=== PATIENT | female | born 1965 | race Caucasian/White ===

== ENCOUNTER → 2022-11-10 08:36 | Outpatient (BNVA) | payer BC, SELFPAY | PROVIDERS: PCP Family Medicine; Visit Provider Student in an Organized Health Care Education/Training Program | DX: Z13.89 Encounter for screening for other disorder (principal) ==

== ENCOUNTER 2023-02-10 09:07 | Outpatient (AMB) | payer BC, SELFPAY ==
[2023-02-10 09:12] VITALS: BP 126/72; PULSE 100; TEMP 36.7; BMI 33.2
--- NOTE | 2023-02-10 09:12 | A.OFFVIS_ITS ---
Intake Vital Signs 02/10/23 09:12 Height 5 ft 8.5 in Weight 221 lb 5.506 oz BMI 33.2 BP 126/72 Blood Pressure Location Rt brachial Position Sitting Pulse 100 Pulse Source Pulse Oximeter Temp 98.1 F Temp Source Skin Intake Visit Reasons: RA Intake Note: * Pt seen today for RA follow up. Denies new or increased joint pain. * States she has more dismcomfort in summer, winter easier on the joints Hotel Reservation Agent Required: No Accompanied by: Self / Same As Patient Allergies adalimumab [From Humira] Adverse Reaction (Mild, Verified 02/10/23 09:16) Neuropathy Medication List - Last Reconciled 02/10/23 by Yoanna Hudson MD calcium carbonate-vitamin D3 600 mg-5 mcg (200 unit) 1 tab PO DAILY cetirizine (Zyrtec) 10 mg PO DAILY PRN cholecalciferol (vitamin D3) (Vitamin D3) 50 mcg PO DAILY famotidine 20 mg PO DAILY folic acid 2 mg PO DAILY magnesium 250 mg PO DAILY melatonin 10 mg PO BEDTIME PRN meloxicam 15 mg PO DAILY PRN methotrexate sodium 17.5 mg (7 x 2.5 mg) PO QWEEK sarilumab (Kevzara) 200 mg (1.14 mL) subcut Q2W HPI HPI Comments History of Present Illness Details 57-year-old female with seropositive RA returns for follow-up. Continues on methotrexate 17.5 mg once weekly and Kevzara every other week. Compliant with meds. States that she gets intermittent flares affecting different joints including her shoulder, knee, fingers. She gets 3-4 flares a week that last 1-2 days. Patient took ibuprofen 600 mg which caused stomach upset. She takes meloxicam 15 mg which rapidly control the flare. Initial history: This is a 57-year-old female with seropositive RA who presents with new patient. Her previous parish nurse left the practice. Patient states that her symptoms started back in summer with poly arthritis. She was diagnosed with rheumatoid arthritis and was started on methotrexate. She took methotrexate for approximately 6 months without much improvement. Humira was added and after 4 months she had burning peripheral neuropathy. She was evaluated by a neurologist, This was attributed to Humira and Humira was since discontinued. She states that her neuropathy improved after Humira was discontinued, but she states that she continues to have some neuropathy symptoms in her feet. She was off biologics for a few months and she was started on Kevzara back in March of 2022. Patient has been doing very well overall until last week when she developed migratory an additive joint pain and swelling affecting her right ankle, knee and hip. Today she only has pain in her right 3rd MCP. In flares patient takes Tylenol and takes 1 Aleve 400 mg a day. 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 and Reports joint swelling Physical Exam Vital Signs: Last Vital Signs Temp 98.1 F 02/10/23 09:12 Pulse 100 02/10/23 09:12 BP 126/72 02/10/23 09:12 BMI result Body Mass Index 33.2 Const General: cooperative, healthy appearing and comfortable Nutritional Appearance: obese Orientation/consciousness: patient oriented x3 Limitations: no limitations HEENT Head: Yes normocephalic and Yes atraumatic Mouth: moist mucous membranes Resp Effort & Inspection: normal respiratory effort and able to speak in complete sentences Auscultation: clear to auscultation bilaterally Cardio Rate: regular rate Rhythm: regular rhythm Heart sounds: S1 normal heart sound present and S2 normal heart sound present GI Inspection: No distended Palpation (GI): Soft to palpation and nontender Neuro General: patient oriented x3 Extrem Other: No active synovitis today Mildly tender right shoulder anteriorly. Results Reviewed Results Reviewed: Transthoracic echo 07/2022? EF 60-65%? MRI brain 12/2020? impression: minimal nonspecific white matter changes Labs 12/2020 ?anti histone antibody/NMO spectrum eval? all negative LEONID 1-80 homogeneous C3 61 (83-193) C4 15 (15-45) Labs 12/2020 Anti actin smooth muscle antibody/SSA/SSB/Thomas/CANE PUSHER/dsDNA/Scl 70/Ronna 1? all negative/normal? C3/C4 normal ACL IgG, IgA, IgG negative? B2GP IgG, IgM, IgA negative CCP > 250? RF 49.6 (<16) SPEP normal CRP 31.5 (<9) ESR 44 Hepatitis ABC negative? QuantiFERON negative X-rays 01/2020? Right hand x-ray.? Impression:? Questionable tiny erosion in the 1st metacarpal head? Left hand x-ray:? Normal? Bilateral shoulder x-rays:? Normal? Bilateral foot x-rays:? Degenerative changes in MTPs QuantiFERON negative Assessment & Plan Assessment & Plan (1) Rheumatoid arthritis: Comment: ++RF, +++CCP dx 01/2020 MTX started 2020 for 6 months without improvement, then Humira was added Humira DC in 12/2020 due to peripheral neuropathy. Neuropathy improved after Discontinuation Kevzara added 04/16 effective Code(s): M06.9 - Rheumatoid arthritis, unspecified Qualifiers: Rheumatoid arthritis location: multiple sites Rheumatoid factor presence: with rheumatoid factor Qualified Code(s): M05.79 - Rheumatoid arthritis with rheumatoid factor of multiple sites without organ or systems involvement Plan: This is a 57-year-old female with seropositive RA who returns for follow-up. D oing well overall. Gets minor intermittent flares that are controlled with meloxicam 15 mg. Discussed with patient the possibility of increasing methotrexate dose and changing it to subcutaneous. Patient prefers not to make any changes at this point. Patient's RA seems to be fairly well controlled. She is in low disease activity. Continue Kevzara every other week and methotrexate 7 tabs once weekly plus folic acid. Can use meloxicam 15 mg once daily as needed for flares Labs unremarkable. Labs before next visit in 4 months (2) terminal clerk methotrexate user: Code(s): Z79.631 - intermediate (current) use of antimetabolite agent Plan: Side effects of methotrexate were discussed with the patient in detail including oral ulcers, elevated LFTs, abdominal discomfort, and possible pancytopenia is. Will monitor patient for side effects with frequent lab work. Advised patient to take folic acid daily to prevent complications of methotrexate. Plan I spent 27 minutes reviewing patient's chart, evaluating patient, ordering diagnostic workup, counseling patient and documenting in the chart Orders: Orders Comprehensive Met. Panel 4 Months M06.9 - Rheumatoid arthritis, unspecified C Reactive Protein 4 Months M06.9 - Rheumatoid arthritis, unspecified Complete Blood Count Auto Diff 4 Months M06.9 - Rheumatoid arthritis, unspecified Erythrocyte Sedimentation Rate 4 Months M06.9 - Rheumatoid arthritis, unspecified Medications: New meloxicam 15 mg PO DAILY PRN 30 tabs 2RF joint pain folic acid 2 mg (2 x 1 mg) PO DAILY 180 tabs 1RF Coding Level of Care Code Est Pt Level 4 (27768) Diagnoses Rheumatoid arthritis M05.79 Rheumatoid arthritis location: multiple sites Rheumatoid factor presence: with rheumatoid factor intermediate methotrexate user Z79.631
== END 2023-02-10 09:58 | disposition home or self-care (01) ==
PROVIDERS: PCP Family Medicine; Visit Provider Student in an Organized Health Care Education/Training Program
DX: M05.79 Rheumatoid arthritis with rheumatoid factor of multiple sites without organ or systems involvement (principal); Z79.631 Long term (current) use of antimetabolite agent
CPT/HCPCS: 99214

== ENCOUNTER → 2023-02-10 09:07 | Outpatient (BNVA) | payer BC, SELFPAY | PROVIDERS: PCP Family Medicine; Visit Provider Student in an Organized Health Care Education/Training Program ==

== ENCOUNTER 2023-06-09 07:41 | Outpatient (AMB) | payer BC, SELFPAY ==
[2023-06-09 07:43] VITALS: BP 110/80; PULSE 98; TEMP 36.1; O2SAT 97; BMI 33.1
--- NOTE | 2023-06-09 07:43 | MHC.OFFVIS ---
Intake Vital Signs 06/09/23 07:43 Height 5 ft 8.5 in Weight 221 lb 1.978 oz BMI 33.1 BP 110/80 Blood Pressure Location Rt brachial Position Sitting Pulse 98 Pulse Source Pulse Oximeter Temp 97 F Temp Source Skin Pulse Oximetry (%) 97 Oxygen Delivery Method Room Air Intake Visit Reasons: RA Intake Note: Pt last seen 02/10/23, presents today for follow up and test results. Kevzara, MTX and meloxicam prn Reports ongoing joint pains. Cement Loader Required: No Accompanied by: Self / Same As Patient Allergies adalimumab [From Humira] Adverse Reaction (Mild, Verified 06/09/23 07:43) Neuropathy Medication List - Last Reconciled 06/09/23 by Yoanna Hudson MD calcium carbonate-vitamin D3 600 mg-5 mcg (200 unit) 1 tab PO DAILY cetirizine (Zyrtec) 10 mg PO DAILY PRN famotidine 20 mg PO DAILY folic acid 2 mg (2 x 1 mg) PO DAILY Kevzara (sarilumab) 200 mg (1.14 mL) subcut Q2W NS magnesium 250 mg PO DAILY melatonin 10 mg PO BEDTIME PRN meloxicam 15 mg PO DAILY PRN methotrexate sodium 17.5 mg (7 x 2.5 mg) PO QWEEK HPI HPI Comments History of Present Illness Details 57-year-old female with seropositive RA returns for follow-up. Continues on methotrexate 17.5 mg once weekly and Kevzara every other week. Compliant with meds. States that she gets intermittent flares affecting different joints including her hands, neck. She states that the Kevzara works very well for 7-10 days then she starts to have multiple flare-ups. She has to take meloxicam daily. She denies any recent infections. For the last 3-4 months 2 people had COVID infection at home and she did not catch the infection. Today patient feels great as she just did the Kevzara injection 2 days ago Initial history: This is a 57-year-old female with seropositive RA who presents with new patient. Her previous administrative receptionist left the practice. Patient states that her symptoms started back in summer with poly arthritis. She was diagnosed with rheumatoid arthritis and was started on methotrexate. She took methotrexate for approximately 6 months without much improvement. Humira was added and after 4 months she had burning peripheral neuropathy. She was evaluated by a neurologist, This was attributed to Humira and Humira was since discontinued. She states that her neuropathy improved after Humira was discontinued, but she states that she continues to have some neuropathy symptoms in her feet. She was off biologics for a few months and she was started on Kevzara back in March of 2022. Patient has been doing very well overall until last week when she developed migratory an additive joint pain and swelling affecting her right ankle, knee and hip. Today she only has pain in her right 3rd MCP. In flares patient takes Tylenol and takes 1 Aleve 400 mg a day. [facility] Medical History Female infertility Presbyopia Tendinitis Allergic rhinitis due to pollen Congenital anomaly of skin Mammogram abnormal Urticaria Rheumatoid arthritis Surgical History H/O: Hx of colonoscopy Hx of tonsillectomy Family History Mother Bladder cancer Leukemia Malignant tumor of breast Father Gout Myocardial infarction FH: prostate cancer Brother Hypertension Sister Hypertension Social History Household Members: Spouse and Children Alcohol intake: current Alcohol intake frequency: holidays/special occasions only Patient Tobacco Use Status: Never used Tobacco Current occupational status: employed 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 [employer] Reports neck pain Musc Reports arthralgias, Reports joint swelling, Reports neck pain and Reports stiffness Physical Exam Vital Signs: Last Vital Signs Temp 97 F 06/09/23 07:43 Pulse 98 06/09/23 07:43 BP 110/80 06/09/23 07:43 Pulse Ox 97 06/09/23 07:43 Oxygen Delivery Method Room Air 06/09/23 07:43 BMI result Body Mass Index 33.1 Const General: cooperative, healthy appearing and comfortable Nutritional Appearance: obese Orientation/consciousness: patient oriented x3 Limitations: no limitations HEENT Head: Yes normocephalic and Yes atraumatic Mouth: moist mucous membranes Resp Effort & Inspection: normal respiratory effort and able to speak in complete sentences Auscultation: clear to auscultation bilaterally Cardio Rate: regular rate Rhythm: regular rhythm Heart sounds: S1 normal heart sound present and S2 normal heart sound present GI Inspection: No distended Palpation (GI): Soft to palpation and nontender Neuro General: patient oriented x3 Extrem Other: No active synovitis today. No swollen joints. A small firm node on the dorsal aspect on the right index finger, minimally tender. Heberden's node versus rheumatoid nodule Results Reviewed Results Reviewed: Transthoracic echo 07/2022? EF 60-65%? MRI brain 12/2020? impression: minimal nonspecific white matter changes Labs 12/2020 ?anti histone antibody/NMO spectrum eval? all negative LEONID 1-80 homogeneous C3 61 (83-193) C4 15 (15-45) Labs 12/2020 Anti actin smooth muscle antibody/SSA/SSB/Thomas/VECTOR CONTROL SPECIALIST/dsDNA/Scl 70/Ronna 1? all negative/normal? C3/C4 normal ACL IgG, IgA, IgG negative? B2GP IgG, IgM, IgA negative CCP > 250? RF 49.6 (<16) SPEP normal CRP 31.5 (<9) ESR 44 Hepatitis ABC negative? QuantiFERON negative X-rays 01/2020? Right hand x-ray.? Impression:? Questionable tiny erosion in the 1st metacarpal head? Left hand x-ray:? Normal? Bilateral shoulder x-rays:? Normal? Bilateral foot x-rays:? Degenerative changes in MTPs QuantiFERON negative Assessment & Plan Assessment & Plan (1) Rheumatoid arthritis: Comment: ++RF, +++CCP dx 01/2020 MTX started 2020 for 6 months without improvement, then Humira was added Humira DC in 12/2020 due to peripheral neuropathy. Neuropathy improved after Discontinuation Kevzara added 04/16 effective Code(s): M06.9 - Rheumatoid arthritis, unspecified Qualifiers: Rheumatoid arthritis location: multiple sites Rheumatoid factor presence: with rheumatoid factor Qualified Code(s): M05.79 - Rheumatoid arthritis with rheumatoid factor of multiple sites without organ or systems involvement Plan: This is a 57-year-old female with seropositive RA who returns for follow-up. On methotrexate 17.5 mg weekly and Kevzara 200 mg every other week. Continues to have RA flare-ups. She has to use meloxicam 15 mg daily. Discussed long-term side effects of NSAIDs Will need to advance DMARDs. Discussed with patient. Will switch methotrexate to subcu and increase to 25 mg weekly Labs showed neutropenia at 0.83. This was just before the Kevzara injection. There is no history of infections or fevers over the last 3-4 months despite 2 people getting COVID infections at home. Hold Kevzara for now. Repeat blood work next Wednesday. If neutrophil count is above 1.0 will resume Kevzara, and repeat blood work before next visit. If neutrophil count remains below 1.0, will switch to Orencia. Continue folic acid daily Labs before next visit in 3 months (2) assisted methotrexate user: Code(s): Z79.631 - terminal supervisor (current) use of antimetabolite agent Plan: Monitor safety labs Plan I spent 35 minutes reviewing patient's chart, evaluating patient, ordering diagnostic workup, counseling patient and documenting in the chart Orders: Orders Complete Blood Count Auto Diff 06/14/23 Z79.631 - assisted (current) use of antimetabolite agent Complete Blood Count Auto Diff 3 Months Z79.631 - assisted (current) use of antimetabolite agent Comprehensive Met. Panel 3 Months Z79.631 - assisted (current) use of antimetabolite agent C Reactive Protein 3 Months Z79.631 - assisted (current) use of antimetabolite agent Erythrocyte Sedimentation Rate 3 Months Z79.631 - terminal supervisor (current) use of antimetabolite agent Medications: New methotrexate sodium (PF) 25 mg subcut QWEEK 4 mL 2RF Refilled meloxicam 15 mg PO DAILY PRN 30 tabs 2RF joint pain Discontinued methotrexate sodium Discontinued Reason: Doctor's Order 17.5 mg (7 x 2.5 mg) PO QWEEK 84 tabs 0RF Coding Level of Care Code Est Pt Level 4 (96990) Diagnoses Rheumatoid arthritis involving multiple sites with positive rheumatoid factor M05.79 Rheumatoid arthritis location: multiple sites Rheumatoid factor presence: with rheumatoid factor terminal supervisor methotrexate user Z79.631
== END 2023-06-09 08:24 | disposition home or self-care (01) ==
PROVIDERS: PCP Family Medicine; Visit Provider Student in an Organized Health Care Education/Training Program
DX: M05.79 Rheumatoid arthritis with rheumatoid factor of multiple sites without organ or systems involvement (principal); Z79.631 Long term (current) use of antimetabolite agent
CPT/HCPCS: 99214

== ENCOUNTER → 2023-06-09 07:41 | Outpatient (BNVA) | payer BC, SELFPAY | PROVIDERS: PCP Family Medicine; Visit Provider Student in an Organized Health Care Education/Training Program ==

== ENCOUNTER 2023-06-14 07:52 | Outpatient (REF) | payer BC, SELFPAY ==
[2023-06-14 10:51] LABS: Basophils Absolute Auto 0.1 X10*3/uL (0.0-0.2); Basophils Percent Auto 1.7 % (0-2); Eosinophils Absolute Auto 0.2 X10*3/uL (0.0-0.4); Hematocrit 39.6 % (37.0-47.0); Hemoglobin 13.7 g/dl (12.0-16.0); Imm Gran Abs Auto 0.01 X10*3/uL (0.00-0.03); Imm Gran Pct Auto 0.3 % (0.0-0.4); Lymphocytes Absolute Auto 0.9 X10*3/uL (1.2-4.9); Lymphocytes Percent Auto 30.8 % (20-40); MANUAL DIFF FLAG SCAN; Mean Corpuscular HGB Conc 34.6 g/dl (31.0-35.0); Mean Corpuscular Hemoglobin 33.3 pg (27.0-33.0); Mean Corpuscular Volume 96.4 fL (80.0-98.0); Monocytes Absolute Auto 0.7 X10*3/uL (0.1-1.2); Monocytes Percent Auto 22.4 % (2-11); Neutrophils Absolute Auto 1.2 x10*3/uL (2.0-8.3); Neutrophils Percent Auto 39.8 % (45-73); Platelet Count 204 X10*3/uL (160-400); Red Blood Count 4.11 X10*6/uL (4.20-5.50); Red Cell Distribution Width 13.2 % (11.0-16.0); SCAN SMEAR FLAG 1
[2023-06-14 11:16] LABS: SLIDE REVIEW VERIFIED
== END 2023-06-14 07:53 | disposition home or self-care (01) ==
LOC: HO.10HDL 07:52
PROVIDERS: Visit Provider Student in an Organized Health Care Education/Training Program
DX: Z51.81 Encounter for therapeutic drug level monitoring (principal); Z79.631 Long term (current) use of antimetabolite agent
CPT/HCPCS: 36415; 85025

== ENCOUNTER 2023-07-22 07:43 | Outpatient (AMB) | payer BC, SELFPAY ==
--- NOTE | 2023-07-22 07:46 | MHC.OFFVIS ---
Intake Vital Signs 07/22/23 07:51 Height 5 ft 8.5 in Weight 223 lb 1.725 oz BMI 33.4 BP 140/80 H Blood Pressure Location Rt brachial Position Sitting Pulse 89 Pulse Source Pulse Oximeter Temp 97 F Temp Source Skin Pulse Oximetry (%) 98 Oxygen Delivery Method Room Air Intake Visit Reasons: Flare up Intake Note: Patient presents today for RA flare. Currently taking Prednisone 20 mg QD. c/o right knee pain, right elbow pain, tammy hand pain Bronc Breaker Required: No Accompanied by: Self / Same As Patient Allergies adalimumab [From Humira] Adverse Reaction (Mild, Verified 07/22/23 07:52) Neuropathy Medication List - Last Reconciled 07/22/23 by Yoanna Hudson MD calcium carbonate-vitamin D3 600 mg-5 mcg (200 unit) 1 tab PO DAILY cetirizine (Zyrtec) 10 mg PO DAILY PRN famotidine 20 mg PO DAILY folic acid 2 mg (2 x 1 mg) PO DAILY insulin syringe-needle U-100 (Advocate Syringes) weekly with methotrexate magnesium 250 mg PO DAILY melatonin 10 mg PO BEDTIME PRN meloxicam 15 mg PO DAILY PRN methotrexate sodium (PF) 25 mg subcut QWEEK methylprednisolone (Medrol) Take 3 tabs daily for 5 days then 2 tabs daily for 1 week then 1 tab daily for 1 week then 1 tab once daily as needed for joint HPI HPI Comments History of Present Illness Details 58-year-old female with seropositive RA returns for follow-up. She starting using methotrexate subcutaneously 25 mg weekly 3 weeks ago. Has not had any difficulties with injection. On Kevzara every other week. She would like to switch D Kevzara 2 syringes. She believes that the pens mouth function and some of the medicine does not go in. She states that a week before Thanksgiving her cat bit her left hand and she developed an infection. She took Augmentin for about a week and 5 days in the infection resolved but since then she has been having a flare-up affecting multiple joints it alternates and migrates in different joints including her feet, knees, hands, yesterday her right elbow started flaring up. She has been taking prednisone 10-20 mg daily and does not believe it helps Initial history: This is a 57-year-old female with seropositive RA who presents with new patient. Her previous precinct police sergeant left the practice. Patient states that her symptoms started back in summer with poly arthritis. She was diagnosed with rheumatoid arthritis and was started on methotrexate. She took methotrexate for approximately 6 months without much improvement. Humira was added and after 4 months she had burning peripheral neuropathy. She was evaluated by a neurologist, This was attributed to Humira and Humira was since discontinued. She states that her neuropathy improved after Humira was discontinued, but she states that she continues to have some neuropathy symptoms in her feet. She was off biologics for a few months and she was started on Kevzara back in March of 2022. Patient has been doing very well overall until last week when she developed migratory an additive joint pain and swelling affecting her right ankle, knee and hip. Today she only has pain in her right 3rd MCP. In flares patient takes Tylenol and takes 1 Aleve 400 mg a day. [facility] Medical History Female infertility Presbyopia Tendinitis Allergic rhinitis due to pollen Congenital anomaly of skin Mammogram abnormal Urticaria Rheumatoid arthritis Surgical History H/O: Hx of colonoscopy Hx of tonsillectomy Family History Mother Bladder cancer Leukemia Malignant tumor of breast Father Gout Myocardial infarction FH: prostate cancer Brother Hypertension Sister Hypertension Social History Household Members: Spouse and Children Alcohol intake: current Alcohol intake frequency: holidays/special occasions only Patient Tobacco Use Status: Never used Tobacco Current occupational status: employed 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[place] Reports arthralgias, Reports joint swelling and Reports stiffness Physical Exam Vital Signs: Last Vital Signs Temp 97 F 07/22/23 07:51 Pulse 89 07/22/23 07:51 BP 140/80 H 07/22/23 07:51 Pulse Ox 98 07/22/23 07:51 Oxygen Delivery Method Room Air 07/22/23 07:51 BMI result Body Mass Index 33.4 Const General: cooperative, healthy appearing and comfortable Nutritional Appearance: obese Orientation/consciousness: patient oriented x3 Limitations: no limitations HEENT Head: Yes normocephalic and Yes atraumatic Mouth: moist mucous membranes Resp Effort & Inspection: normal respiratory effort and able to speak in complete sentences Cardio Rate: regular rate Rhythm: regular rhythm GI Inspection: No distended Palpation (GI): Soft to palpation and nontender Neuro General: patient oriented x3 Extrem Other: Right elbow tenderness warmth and pain with any range of motion Right 3rd finger flexor tendon tenderness Left 2nd MCP tenderness Left wrist pain with full flexion Results Reviewed Results Reviewed: Transthoracic echo 07/2022? EF 60-65%? MRI brain 12/2020? impression: minimal nonspecific white matter changes Labs 12/2020 ?anti histone antibody/NMO spectrum eval? all negative LEONID 1-80 homogeneous C3 61 (83-193) C4 15 (15-45) Labs 12/2020 Anti actin smooth muscle antibody/SSA/SSB/Thomas/BOILERHOUSE MECHANIC/dsDNA/Scl 70/Ronna 1? all negative/normal? C3/C4 normal ACL IgG, IgA, IgG negative? B2GP IgG, IgM, IgA negative CCP > 250? RF 49.6 (<16) SPEP normal CRP 31.5 (<9) ESR 44 Hepatitis ABC negative? QuantiFERON negative X-rays 01/2020? Right hand x-ray.? Impression:? Questionable tiny erosion in the 1st metacarpal head? Left hand x-ray:? Normal? Bilateral shoulder x-rays:? Normal? Bilateral foot x-rays:? Degenerative changes in MTPs QuantiFERON negative Assessment & Plan Assessment & Plan (1) Rheumatoid arthritis: Comment: ++RF, +++CCP dx 01/2020 MTX started 2020 for 6 months without improvement, then Humira was added Humira DC in 12/2020 due to peripheral neuropathy. Neuropathy improved after Discontinuation Kevzara added 04/16 effective Code(s): M06.9 - Rheumatoid arthritis, unspecified Qualifiers: Rheumatoid arthritis location: multiple sites Rheumatoid factor presence: with rheumatoid factor Qualified Code(s): M05.79 - Rheumatoid arthritis with rheumatoid factor of multiple sites without organ or systems involvement Plan: This is a 58-year-old female with seropositive RA who returns for follow-up. She is on methotrexate 25 mg subcutaneously weekly, Kevzara every other week, and folic acid. A week before Thanksgiving patient had a cat bite that was treated with antibiotic as since then she has been having a flare-up affecting different joints. She has been taking prednisone 10-20 mg a day and does not believe it helps. On exam today patient multiple swollen and tender joints. Will need to advance and switch DMARDs. Will start prior authorization for subcutaneous Actemra, 162 mg once weekly Continue with methotrexate 25 mg subcutaneously weekly. Continue folic acid Will switch prednisone to Medrol taper provided Labs before next visit in 10 weeks (2) long term acute care registered nurse methotrexate user: Code(s): Z79.631 - prison (current) use of antimetabolite agent Plan: Monitor safety labs Plan I spent 25 minutes reviewing patient's chart, evaluating patient, ordering diagnostic workup, counseling patient and documenting in the chart Medications: New methylprednisolone (Medrol) Take 3 tabs daily for 5 days then 2 tabs daily for 1 week then 1 tab daily for 1 week then 1 tab once daily as needed for joint 50 tabs 1RF Discontinued prednisone Discontinued Reason: Doctor's Order Take 1-2 tablets once daily as needed for flare-ups 30 tabs 0RF Coding Level of Care Code Est Pt Level 4 (92323) Diagnoses Rheumatoid arthritis involving multiple sites with positive rheumatoid factor M05.79 Rheumatoid arthritis location: multiple sites Rheumatoid factor presence: with rheumatoid factor prison methotrexate user Z79.631
[2023-07-22 07:51] VITALS: BP 140/80; PULSE 89; TEMP 36.1; O2SAT 98; BMI 33.4
== END 2023-07-22 08:07 | disposition home or self-care (01) ==
PROVIDERS: PCP Family Medicine; Visit Provider Student in an Organized Health Care Education/Training Program
DX: M05.79 Rheumatoid arthritis with rheumatoid factor of multiple sites without organ or systems involvement (principal); Z79.631 Long term (current) use of antimetabolite agent
CPT/HCPCS: 99214

== ENCOUNTER → 2023-07-22 07:43 | Outpatient (BNVA) | payer BC, SELFPAY | PROVIDERS: PCP Family Medicine; Visit Provider Student in an Organized Health Care Education/Training Program ==

== ENCOUNTER 2023-09-16 10:22 | Outpatient (REF) | payer BC, SELFPAY ==
[2023-09-16 13:08] LABS: MANUAL DIFF FLAG NO
[2023-09-16 13:23] LABS: Basophils Absolute Auto 0.1 X10*3/uL (0.0-0.2); Basophils Percent Auto 1.7 % (0-2); Eosinophils Absolute Auto 0.1 X10*3/uL (0.0-0.4); Eosinophils Percent Auto 3.9 % (0-4); Hematocrit 38.8 % (37.0-47.0); Hemoglobin 13.6 g/dl (12.0-16.0); Imm Gran Abs Auto 0.01 X10*3/uL (0.00-0.03); Imm Gran Pct Auto 0.3 % (0.0-0.4); Lymphocytes Absolute Auto 1.5 X10*3/uL (1.2-4.9); Lymphocytes Percent Auto 41.3 % (20-40); Mean Corpuscular HGB Conc 35.1 g/dl (31.0-35.0); Mean Corpuscular Hemoglobin 33.9 pg (27.0-33.0); Mean Corpuscular Volume 96.8 fL (80.0-98.0); Mean Platelet Volume 11.2 fL (9.4-12.3); Monocytes Absolute Auto 0.3 X10*3/uL (0.1-1.2); Monocytes Percent Auto 9.4 % (2-11); Neutrophils Absolute Auto 1.6 x10*3/uL (2.0-8.3); Neutrophils Percent Auto 43.4 % (45-73); Platelet Count 199 X10*3/uL (160-400); Red Blood Count 4.01 X10*6/uL (4.20-5.50); Red Cell Distribution Width 13.2 % (11.0-16.0); White Blood Count 3.6 X10*3/uL (4.8-10.8)
[2023-09-16 13:43] LABS: Alanine Aminotransferase 37 U/L (0-31); Albumin Level 3.9 g/dL (3.5-5.0); Alkaline Phosphatase 60 U/L (39-117); Anion Gap 11 (12-20); Aspartate Amino Transferase 23 U/L (5-31); Bilirubin Total 0.5 mg/dL (0.0-1.0); Blood Urea Nitrogen 18 mg/dL (9-16); C Reactive Protein < 0.04 mg/dL (< or = 0.50); Calcium 8.5 mg/dL (8.4-10.2); Carbon Dioxide 24 mmol/L (22-29); Chloride 109 mmol/L (96-108); Estimated Glomerular Filt Rate > 60; Glucose Random 103 mg/dL (60-115); Potassium 4.2 mmol/L (3.3-5.1); Sodium 140 mmol/L (135-145); Total Protein 6.3 g/dL (6.5-8.0)
[2023-09-16 14:16] LABS: Erythrocyte Sedimentation Rate 1 MM/HR (0-20)
== END 2023-09-16 10:23 | disposition home or self-care (01) ==
LOC: HO.10HDL 10:22
PROVIDERS: Visit Provider Student in an Organized Health Care Education/Training Program
DX: M06.9 Rheumatoid arthritis, unspecified (principal); Z79.631 Long term (current) use of antimetabolite agent
CPT/HCPCS: 36415; 80053; 85025; 85652; 86140

== ENCOUNTER 2023-09-21 07:32 | Outpatient (AMB) | payer BC, SELFPAY ==
--- NOTE | 2023-09-21 07:34 | A.OFFVIS_ITS ---
Intake Vital Signs 09/21/23 07:36 Height 5 ft 8.43 in Weight 222 lb 10.67 oz BMI 33.4 BP 126/74 Blood Pressure Location Rt brachial Position Sitting Pulse 73 Pulse Source Pulse Oximeter Temp 97.7 F Temp Source Skin Pulse Oximetry (%) 97 Oxygen Delivery Method Room Air Intake Visit Reasons: RA Intake Note: Patient last seen 07/22/23 presents today for follow up and test results. Reports feeling better since last visit. Continues with MTX and Actemra, may need refills. 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: No Accompanied by: Self / Same As Patient Allergies adalimumab [From Humira] Adverse Reaction (Mild, Verified 09/21/23 07:38) Neuropathy Medication List - Last Reconciled 09/21/23 by Yoanna Hudson MD Actemra (tocilizumab) 162 mg (0.9 mL) subcut QWEEK NS calcium carbonate-vitamin D3 600 mg-5 mcg (200 unit) 1 tab PO DAILY cetirizine (Zyrtec) 10 mg PO DAILY PRN famotidine 20 mg PO DAILY folic acid 2 mg (2 x 1 mg) PO DAILY insulin syringe-needle U-100 (Advocate Syringes) weekly with methotrexate magnesium 250 mg PO DAILY melatonin 10 mg PO BEDTIME PRN meloxicam 15 mg PO DAILY PRN methotrexate sodium (PF) 25 mg subcut QWEEK HPI HPI Comments History of Present Illness Details 58-year-old female with seropositive RA returns for follow-up. She switched from Kevzara every other week to Actemra weekly last visit about 2 months ago. Also on methotrexate 25 mg subcutaneously weekly. Doing much better overall. She has minimal alternating small joint involvement but overall much better. Has not used Medrol in a long time. No recent illnesses. No alcohol use. Initial history: This is a 57-year-old female with seropositive RA who presents with new patient. 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 Patient states that her symptoms started back in summer with poly arthritis. She was diagnosed with rheumatoid arthritis and was started on methotrexate. She took methotrexate for approximately 6 months without much improvement. Humira was added and after 4 months she had burning peripheral neuropathy. She was evaluated by a neurologist, This was attributed to Humira and Humira was since discontinued. She states that her neuropathy improved after Humira was discontinued, but she states that she continues to have some neuropathy symptoms in her feet. She was off biologics for a few months and she was started on Kevzara back in March of 2022. Patient has been doing very well overall until last week when she developed migratory an additive joint pain and swelling affecting her right ankle, knee and hip. Today she only has pain in her right 3rd MCP. In flares patient takes Tylenol and takes 1 Aleve 400 mg a day. [facility] Medical History Female infertility Presbyopia Tendinitis Allergic rhinitis due to pollen Congenital anomaly of skin Mammogram abnormal Urticaria Rheumatoid arthritis Surgical History H/O: Hx of colonoscopy Hx of tonsillectomy Family History Mother Bladder cancer Leukemia Malignant tumor of breast Father Gout Myocardial infarction FH: prostate cancer Brother Hypertension Sister Hypertension Social History Household Members: Spouse and Children Alcohol intake: current Alcohol intake frequency: holidays/special occasions only Patient Tobacco Use Status: Never used Tobacco Current occupational status: employed 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[employer] [place] Reports arthralgias and Reports joint swelling Physical Exam Vital Signs: Last Vital Signs Temp 97.7 F 09/21/23 07:36 Pulse 73 09/21/23 07:36 BP 126/74 09/21/23 07:36 Pulse Ox 97 09/21/23 07:36 Oxygen Delivery Method Room Air 09/21/23 07:36 BMI result Body Mass Index 33.4 Const General: cooperative, healthy appearing and comfortable Nutritional Appearance: obese Orientation/consciousness: patient oriented x3 Limitations: no limitations HEENT Head: Yes normocephalic and Yes atraumatic Mouth: moist mucous membranes Resp Effort & Inspection: normal respiratory effort and able to speak in complete sentences Cardio Rate: regular rate Rhythm: regular rhythm GI Inspection: No distended Palpation (GI): Soft to palpation and nontender Neuro General: patient oriented x3 Extrem Other: No elbow pain with flexion and extension bilaterally Normal range of motion of both shoulders without pain Mild right wrist pain with full flexion Mild right 2nd MCP swelling without tenderness Mild left 2nd MCP swelling and tenderness Bilateral knee crepitus but no pain with flexion and extension Results Reviewed Results Reviewed: Transthoracic echo 07/2022? EF 60-65%? MRI brain 12/2020? impression: minimal nonspecific white matter changes Labs 12/2020 ?anti histone antibody/NMO spectrum eval? all negative LEONID 1-80 homogeneous C3 61 (83-193) C4 15 (15-45) Labs 12/2020 Anti actin smooth muscle antibody/SSA/SSB/Thomas/CRAFT SUPERINTENDENT/dsDNA/Scl 70/Ronna 1? all negative/normal? C3/C4 normal ACL IgG, IgA, IgG negative? B2GP IgG, IgM, IgA negative CCP > 250? RF 49.6 (<16) SPEP normal CRP 31.5 (<9) ESR 44 Hepatitis ABC negative? QuantiFERON negative X-rays 01/2020? Right hand x-ray.? Impression:? Questionable tiny erosion in the 1st metacarpal head? Left hand x-ray:? Normal? Bilateral shoulder x-rays:? Normal? Bilateral foot x-rays:? Degenerative changes in MTPs QuantiFERON negative Assessment & Plan Assessment & Plan (1) Rheumatoid arthritis: Comment: ++RF, +++CCP dx 01/2020 MTX started 2020 for 6 months without improvement, then Humira was added Humira DC in 12/2020 due to peripheral neuropathy. Neuropathy improved after Discontinuation Kevzara added 04/16-07/2023 DC due to secondary nonresponse Actemra weekly 07/2023 effective Code(s): M06.9 - Rheumatoid arthritis, unspecified Qualifiers: Rheumatoid arthritis location: multiple sites Rheumatoid factor presence: with rheumatoid factor Qualified Code(s): M05.79 - Rheumatoid arthritis with rheumatoid factor of multiple sites without organ or systems involvement Plan: This is a 58-year-old female with seropositive RA who returns for follow-up. She is on methotrexate 25 mg subcutaneously weekly, Actemra weekly and folic acid. Doing much better overall since Actemra was started. 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) use of antimetabolite agent Medications: Changed From methotrexate sodium (PF) 25 mg subcut QWEEK 8 mL 2RF To methotrexate sodium (PF) 20 mg (0.8 mL) subcut QWEEK 8 mL 2RF Refilled insulin syringe-needle U-100 ([facility]ocate Syringes) weekly with methotrexate 10 ea 1RF M06.9 - Rheumatoid arthritis, unspecified, Z79.631 - residential (current) use of antimetabolite agent Coding Level of Care Code Est Pt Level 4 (34036) Diagnoses Rheumatoid arthritis involving multiple sites with positive rheumatoid factor M05.79 Rheumatoid arthritis location: multiple sites Rheumatoid factor presence: with rheumatoid factor residential methotrexate user Z79.631
[2023-09-21 07:36] VITALS: BP 126/74; PULSE 73; TEMP 36.5; O2SAT 97; BMI 33.4
== END 2023-09-21 07:57 | disposition home or self-care (01) ==
PROVIDERS: PCP Family Medicine; Visit Provider Student in an Organized Health Care Education/Training Program
DX: M05.79 Rheumatoid arthritis with rheumatoid factor of multiple sites without organ or systems involvement (principal); Z79.631 Long term (current) use of antimetabolite agent
CPT/HCPCS: 99214

== ENCOUNTER → 2023-09-21 07:32 | Outpatient (BNVA) | payer BC, SELFPAY | PROVIDERS: PCP Family Medicine; Visit Provider Student in an Organized Health Care Education/Training Program ==

== ENCOUNTER 2023-12-09 12:08 | Outpatient (REF) | payer BC, SELFPAY ==
[2023-12-09 12:48] LABS: MANUAL DIFF FLAG NO
[2023-12-09 12:51] LABS: Basophils Absolute Auto 0.1 X10*3/uL (0.0-0.2); Basophils Percent Auto 1.3 % (0-2); Eosinophils Absolute Auto 0.1 X10*3/uL (0.0-0.4); Eosinophils Percent Auto 3.4 % (0-4); Hematocrit 37.2 % (37.0-47.0); Hemoglobin 13.1 g/dl (12.0-16.0); Lymphocytes Absolute Auto 1.4 X10*3/uL (1.2-4.9); Lymphocytes Percent Auto 35.6 % (20-40); Mean Corpuscular HGB Conc 35.2 g/dl (31.0-35.0); Mean Corpuscular Hemoglobin 33.9 pg (27.0-33.0); Mean Corpuscular Volume 96.1 fL (80.0-98.0); Monocytes Absolute Auto 0.4 X10*3/uL (0.1-1.2); Neutrophils Absolute Auto 1.9 x10*3/uL (2.0-8.3); Neutrophils Percent Auto 49.7 % (45-73); Platelet Count 195 X10*3/uL (160-400); Red Blood Count 3.87 X10*6/uL (4.20-5.50); Red Cell Distribution Width 13.4 % (11.0-16.0); White Blood Count 3.8 X10*3/uL (4.8-10.8)
[2023-12-09 13:38] LABS: Erythrocyte Sedimentation Rate 2 MM/HR (0-20)
[2023-12-09 13:48] LABS: Alanine Aminotransferase 34 U/L (0-31); Albumin Level 3.9 g/dL (3.5-5.0); Alkaline Phosphatase 48 U/L (39-117); Anion Gap 11 (12-20); Aspartate Amino Transferase 24 U/L (5-31); Bilirubin Total 0.4 mg/dL (0.0-1.0); Blood Urea Nitrogen 18 mg/dL (9-16); C Reactive Protein < 0.04 mg/dL (< or = 0.50); Calcium 8.8 mg/dL (8.4-10.2); Carbon Dioxide 27 mmol/L (22-29); Chloride 107 mmol/L (96-108); Estimated Glomerular Filt Rate > 60; Glucose Random 92 mg/dL (60-115); Sodium 141 mmol/L (135-145); Total Protein 6.3 g/dL (6.5-8.0)
== END 2023-12-09 12:09 | disposition home or self-care (01) ==
LOC: HO.10HDL 12:08
PROVIDERS: Visit Provider Student in an Organized Health Care Education/Training Program
DX: M06.9 Rheumatoid arthritis, unspecified (principal); Z79.631 Long term (current) use of antimetabolite agent
CPT/HCPCS: 36415; 80053; 85025; 85652; 86140

== ENCOUNTER 2023-12-14 07:36 | Outpatient (AMB) | payer BC, SELFPAY ==
--- NOTE | 2023-12-14 07:40 | A.OFFVIS_ITS ---
Vital Signs 12/14/23 07:41 Height 5 ft 8.4 in Weight 222 lb 0.088 oz BMI 33.4 BP 138/74 Blood Pressure Location Rt brachial Position Sitting Pulse 90 Pulse Source Pulse Oximeter Pulse Oximetry (%) 97 Oxygen Delivery Method Room Air Intake Visit Reasons: RA/CM Intake Note: Patient last seen 09/21/23 presents today for follow up and test results. Reports increased pain everywhere [employer] Required: No Accompanied by: Self / Same As Patient Allergies adalimumab [From Humira] Adverse Reaction (Mild, Verified 12/14/23 07:50) Neuropathy Medication List - Last Reconciled 12/14/23 by Yoanna Hudson MD calcium carbonate-vitamin D3 600 mg-5 mcg (200 unit) 1 tab PO DAILY cetirizine (Zyrtec) 10 mg PO DAILY PRN famotidine 20 mg PO DAILY folic acid 2 mg (2 x 1 mg) PO DAILY furosemide 20 mg PO DAILY insulin syringe-needle U-100 (Advocate Syringes) weekly with methotrexate magnesium 250 mg PO DAILY melatonin 10 mg PO BEDTIME PRN meloxicam 15 mg PO DAILY PRN methotrexate sodium (PF) 20 mg (0.8 mL) subcut QWEEK HPI Comments Details: 58-year-old female with seropositive RA returns for follow-up. She is on Actemra weekly and methotrexate 20 mg subcutaneously weekly. States that since we lowered the methotrexate last visit from 25 mg weekly to 20 mg weekly, she has been feeling much worse overall. She has increased pain everywhere. Pain and stiffness, swelling in her hands, difficulty making a fist. feet, alternating joint pain in her knees ankles. Initial history: This is a 57-year-old female with seropositive RA who presents with new patient. 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 Patient states that her symptoms started back in summer with poly arthritis. She was diagnosed with rheumatoid arthritis and was started on methotrexate. She took methotrexate for approximately 6 months without much improvement. Humira was added and after 4 months she had burning peripheral neuropathy. She was evaluated by a neurologist, This was attributed to Humira and Humira was since discontinued. She states that her neuropathy improved after Humira was discontinued, but she states that she continues to have some neuropathy symptoms in her feet. She was off biologics for a few months and she was started on Kevzara back in March of 2022. Patient has been doing very well overall until last week when she developed migratory an additive joint pain and swelling affecting her right ankle, knee and hip. Today she only has pain in her right 3rd MCP. In flares patient takes Tylenol and takes 1 Aleve 400 mg a day. [facility] Medical History Female infertility Presbyopia Tendinitis Allergic rhinitis due to pollen Congenital anomaly of skin Mammogram abnormal Urticaria Rheumatoid arthritis Surgical History H/O: Hx of colonoscopy Hx of tonsillectomy Family History Mother Bladder cancer Leukemia Malignant tumor of breast Father Gout Myocardial infarction FH: prostate cancer Brother Hypertension Sister Hypertension Social History Household Members: Spouse and Children Alcohol intake: current Alcohol intake frequency: holidays/special occasions only Patient Tobacco Use Status: Never used Tobacco Current occupational status: employed 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[place] Reports arthralgias and Reports joint swelling Physical Exam Vital Signs: Last Vital Signs Pulse 90 12/14/23 07:41 BP 138/74 12/14/23 07:41 Pulse Ox 97 12/14/23 07:41 Oxygen Delivery Method Room Air 12/14/23 07:41 BMI result Body Mass Index 33.4 Const General: cooperative, healthy appearing and comfortable Nutritional Appearance: obese Orientation/consciousness: patient oriented x3 Limitations: no limitations HEENT Head: Yes normocephalic and Yes atraumatic Mouth: moist mucous membranes Resp Effort & Inspection: normal respiratory effort and able to speak in complete sentences Cardio Rate: regular rate Rhythm: regular rhythm GI Inspection: No distended Palpation (GI): Soft to palpation and nontender Neuro General: patient oriented x3 Extrem Other: No elbow pain with flexion and extension bilaterally Bilateral wrist pain with full flexion-extension but no swelling or tenderness Left 3rd MCP swelling and tenderness Left 2nd and 4th finger swelling Left 2nd and 4th PIP tenderness Weak left hand concrete vibrator 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 EF 60-65%? MRI brain 12/2020? impression: minimal nonspecific white matter changes Labs 12/2020 ?anti histone antibody/NMO spectrum eval? all negative LEONID 1-80 homogeneous C3 61 (83-193) C4 15 (15-45) Labs 12/2020 Anti actin smooth muscle antibody/SSA/SSB/Thomas/DRILL PRESS OPERATOR HELPER/dsDNA/Scl 70/Ronna 1? all negative/normal? C3/C4 normal ACL IgG, IgA, IgG negative? B2GP IgG, IgM, IgA negative CCP > 250? RF 49.6 (<16) SPEP normal CRP 31.5 (<9) ESR 44 Hepatitis ABC negative? QuantiFERON negative X-rays 01/2020? Right hand x-ray.? Impression:? Questionable tiny erosion in the 1st metacarpal head? Left hand x-ray:? Normal? Bilateral shoulder x-rays:? Normal? Bilateral foot x-rays:? Degenerative changes in MTPs QuantiFERON negative Assessment & Plan Assessment & Plan (1) Rheumatoid arthritis: Comment: ++RF, +++CCP dx 01/2020 MTX started 2020 for 6 months without improvement, then Humira was added Humira DC in 12/2020 due to peripheral neuropathy. Neuropathy improved after Discontinuation Kevzara added 04/16-07/2023 DC due to secondary nonresponse Actemra weekly 07/2023 effective. DC 11/2023 2ry nonresponse Code(s): M06.9 - Rheumatoid arthritis, unspecified Category: Medical Qualifiers: Rheumatoid arthritis location: multiple sites Rheumatoid factor presence: with rheumatoid factor Qualified Code(s): M05.79 - Rheumatoid arthritis with rheumatoid factor of multiple sites without organ or systems involvement Plan: This is a 58-year-old female with seropositive RA who returns for follow-up. She is on methotrexate 20 mg subcutaneously weekly, Actemra weekly and folic acid. Since methotrexate was lowered last visit from 25 mg to 20 mg due to transaminitis she has been feeling much worse. Actemra and does not seem to be helpful. On exam she has numerous swollen and tender joints. Will need to change DMARDs. Discussed risks and benefits of Rinvoq. Discussed black box warning of CAYDEN inhibitors such as increased risk of malignancy, cardiovascular and thromboembolic events. Patient agreed proceed. Start Rinvoq 15 mg daily. Advised patient to call me in 1 month and let me know how she feels. If She feels better. 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: Code(s): Z79.631 - joint terminal attack controller (current) use of antimetabolite agent Category: Medical Plan: Monitor safety labs Plan I spent 25 minutes reviewing patient's chart, evaluating patient, ordering diagnostic workup, counseling patient and documenting in the chart Medications: New Rinvoq ER (upadacitinib) Lot # [id number] EXp: 04/16/25 15 mg PO DAILY 28 tabs 0RF NS Discontinued Actemra (tocilizumab) Discontinued Reason: Doctor's Order 162 mg (0.9 mL) subcut QWEEK 4 mL 2RF NS Coding Level of Care Code Est Pt Level 4 (75558) Diagnoses Rheumatoid arthritis involving multiple sites with positive rheumatoid factor M05.79 Rheumatoid arthritis location: multiple sites Rheumatoid factor presence: with rheumatoid factor joint terminal attack controller methotrexate user Z79.631
[2023-12-14 07:41] VITALS: BP 138/74; PULSE 90; O2SAT 97; BMI 33.4
== END 2023-12-14 08:19 | disposition home or self-care (01) ==
PROVIDERS: PCP Family Medicine; Visit Provider Student in an Organized Health Care Education/Training Program
DX: M05.79 Rheumatoid arthritis with rheumatoid factor of multiple sites without organ or systems involvement (principal); Z79.631 Long term (current) use of antimetabolite agent
CPT/HCPCS: 99214

== ENCOUNTER → 2023-12-14 07:36 | Outpatient (BNVA) | payer BC, SELFPAY | PROVIDERS: PCP Family Medicine; Visit Provider Student in an Organized Health Care Education/Training Program ==

== ENCOUNTER 2024-03-17 08:16 | Outpatient (REF) | payer BC, SELFPAY ==
[2024-03-17 08:29] LABS: MANUAL DIFF FLAG NO
[2024-03-17 08:57] LABS: Basophils Percent Auto 0.6 % (0-2); Eosinophils Absolute Auto 0.1 X10*3/uL (0.0-0.4); Eosinophils Percent Auto 1.5 % (0-4); Hematocrit 38.6 % (37.0-47.0); Imm Gran Abs Auto 0.02 X10*3/uL (0.00-0.03); Imm Gran Pct Auto 0.6 % (0.0-0.4); Lymphocytes Absolute Auto 1.2 X10*3/uL (1.2-4.9); Lymphocytes Percent Auto 36.7 % (20-40); Mean Corpuscular HGB Conc 33.7 g/dl (31.0-35.0); Mean Corpuscular Hemoglobin 32.3 pg (27.0-33.0); Mean Corpuscular Volume 95.8 fL (80.0-98.0); Mean Platelet Volume 10.6 fL (9.4-12.3); Monocytes Absolute Auto 0.6 X10*3/uL (0.1-1.2); Monocytes Percent Auto 18.3 % (2-11); Neutrophils Absolute Auto 1.4 x10*3/uL (2.0-8.3); Neutrophils Percent Auto 42.3 % (45-73); Platelet Count 280 X10*3/uL (160-400); Red Blood Count 4.03 X10*6/uL (4.20-5.50); Red Cell Distribution Width 13.7 % (11.0-16.0); White Blood Count 3.4 X10*3/uL (4.8-10.8)
[2024-03-17 09:31] LABS: Erythrocyte Sedimentation Rate 19 MM/HR (0-20)
[2024-03-17 09:36] LABS: Alanine Aminotransferase 37 U/L (0-31); Albumin Level 4.2 g/dL (3.5-5.0); Alkaline Phosphatase 72 U/L (39-117); Anion Gap 11 (12-20); Aspartate Amino Transferase 30 U/L (5-31); Bilirubin Total 0.4 mg/dL (0.0-1.0); Blood Urea Nitrogen 13 mg/dL (9-16); C Reactive Protein 1.16 mg/dL (< or = 0.50); Calcium 9.1 mg/dL (8.4-10.2); Carbon Dioxide 25 mmol/L (22-29); Chloride 109 mmol/L (96-108); Cholesterol 204 mg/dL (<200); Estimated Glomerular Filt Rate > 60; Glucose Random 123 mg/dL (60-115); HDL Cholesterol 46 mg/dL (>40); LDL Cholesterol Calculated 124 mg/dL (<100); Potassium 4.4 mmol/L (3.3-5.1); Sodium 141 mmol/L (135-145); Total Protein 7.5 g/dL (6.5-8.0); Triglycerides 173 mg/dL (<150)
== END 2024-03-17 08:17 | disposition home or self-care (01) ==
LOC: HO.LAB 08:16
PROVIDERS: PCP Family Medicine; Visit Provider Student in an Organized Health Care Education/Training Program
DX: M05.79 Rheumatoid arthritis with rheumatoid factor of multiple sites without organ or systems involvement (principal); E78.5 Hyperlipidemia, unspecified; Z79.631 Long term (current) use of antimetabolite agent
CPT/HCPCS: 36415; 80053; 80061; 85025; 85652; 86140

== ENCOUNTER 2024-03-21 07:59 | Outpatient (AMB) | payer BC, SELFPAY ==
--- NOTE | 2024-03-21 08:02 | MHC.OFFVIS ---
Vital Signs 03/21/24 08:06 Height 5 ft 8.4 in Weight 209 lb 3.499 oz BMI 31.4 BP 120/74 Blood Pressure Location Rt brachial Position Sitting Pulse 88 Pulse Source Pulse Oximeter Pulse Oximetry (%) 98 Oxygen Delivery Method Room Air Intake Visit Reasons: RA Intake Note: Patient presents for RA. Allergies adalimumab [From Humira] Adverse Reaction (Mild, Verified 03/21/24 08:05) Neuropathy Medication List - Last Reconciled 03/21/24 by Yoanna Hudson MD calcium carbonate-vitamin D3 600 mg-5 mcg (200 unit) 1 tab PO DAILY cetirizine (Zyrtec) 10 mg PO DAILY PRN famotidine 20 mg PO DAILY folic acid 2 mg (2 x 1 mg) PO DAILY furosemide 20 mg PO DAILY insulin syringe-needle U-100 (Advocate Syringes) weekly with methotrexate magnesium 250 mg PO DAILY melatonin 10 mg PO BEDTIME PRN meloxicam 15 mg PO DAILY PRN methotrexate sodium (PF) 20 mg (0.8 mL) subcut QWEEK Rinvoq ER (upadacitinib) 15 mg PO DAILY NS HPI Comments Details: 58-year-old female with seropositive RA returns for follow-up. She started Rinvoq 15 mg p.o. daily about 3 months ago and feels significant improvement. She remains on methotrexate 20 mg subcutaneously weekly. She states that she continues to get flare-ups about once a week that last about 1 day. She has lost more than 10 lb. She has noticed getting more frequent mouth sores and short-lived minor viral infections Initial history: This is a 57-year-old female with seropositive RA who presents with new patient. 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 Patient states that her symptoms started back in summer with poly arthritis. She was diagnosed with rheumatoid arthritis and was started on methotrexate. She took methotrexate for approximately 6 months without much improvement. Humira was added and after 4 months she had burning peripheral neuropathy. She was evaluated by a neurologist, This was attributed to Humira and Humira was since discontinued. She states that her neuropathy improved after Humira was discontinued, but she states that she continues to have some neuropathy symptoms in her feet. She was off biologics for a few months and she was started on Kevzara back in March of 2022. Patient has been doing very well overall until last week when she developed migratory an additive joint pain and swelling affecting her right ankle, knee and hip. Today she only has pain in her right 3rd MCP. In flares patient takes Tylenol and takes 1 Aleve 400 mg a day. [facility] Medical History Female infertility Presbyopia Tendinitis Allergic rhinitis due to pollen Congenital anomaly of skin Mammogram abnormal Urticaria Rheumatoid arthritis Surgical History H/O: Hx of colonoscopy Hx of tonsillectomy Family History Mother Bladder cancer Leukemia Malignant tumor of breast Father Gout Myocardial infarction FH: prostate cancer Brother Hypertension Sister Hypertension Social History Household Members: Spouse and Children Alcohol intake: current Alcohol intake frequency: holidays/special occasions only Patient Tobacco Use Status: Never used Tobacco Current occupational status: employed 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 Female Reproductive History Menstrual Total pregnancies: 2 Number of Living Children: 3 Review of Systems [facility] [place] Reports arthralgias and Reports joint swelling Physical Exam Vital Signs: Last Vital Signs Pulse 88 03/21/24 08:06 BP 120/74 03/21/24 08:06 Pulse Ox 98 03/21/24 08:06 Oxygen Delivery Method Room Air 03/21/24 08:06 BMI result Body Mass Index 31.4 Const General: cooperative, healthy appearing and comfortable Nutritional Appearance: obese Orientation/consciousness: patient oriented x3 Limitations: no limitations HEENT Head: Yes normocephalic and Yes atraumatic Mouth: moist mucous membranes Resp Effort & Inspection: normal respiratory effort and able to speak in complete sentences Cardio Rate: regular rate Rhythm: regular rhythm GI Inspection: No distended Palpation (GI): Soft to palpation and nontender Neuro General: patient oriented x3 Extrem Other: No elbow pain with flexion and extension bilaterally Minimal right wrist swelling and pain with full flexion No active synovitis otherwise Negative MTP squeeze test bilaterally Normal range of motion shoulders without pain bilaterally Bilateral knee crepitus but no pain with flexion and extension Results Reviewed Results Reviewed: Transthoracic echo 07/2022? EF 60-65%? MRI brain 12/2020? impression: minimal nonspecific white matter changes Labs 12/2020 ?anti histone antibody/NMO spectrum eval? all negative LEONID 1-80 homogeneous C3 61 (83-193) C4 15 (15-45) Labs 12/2020 Anti actin smooth muscle antibody/SSA/SSB/Thomas/CEMENT DESPATCH OPERATOR/dsDNA/Scl 70/Ronna 1? all negative/normal? C3/C4 normal ACL IgG, IgA, IgG negative? B2GP IgG, IgM, IgA negative CCP > 250? RF 49.6 (<16) SPEP normal CRP 31.5 (<9) ESR 44 Hepatitis ABC negative? QuantiFERON negative X-rays 01/2020? Right hand x-ray.? Impression:? Questionable tiny erosion in the 1st metacarpal head? Left hand x-ray:? Normal? Bilateral shoulder x-rays:? Normal? Bilateral foot x-rays:? Degenerative changes in MTPs QuantiFERON negative Assessment & Plan Assessment & Plan (1) Rheumatoid arthritis: Comment: ++RF, +++CCP dx 01/2020 MTX started 2020 for 6 months without improvement, then Humira was added Humira DC in 12/2020 due to peripheral neuropathy. Neuropathy improved after Discontinuation Kevzara added 04/16-07/2023 DC due to secondary nonresponse Actemra weekly 07/2023 effective. DC 11/2023 2ry nonresponse Rinvoq 11/2023 effective Code(s): M06.9 - Rheumatoid arthritis, unspecified Category: Medical Qualifiers: Rheumatoid arthritis location: multiple sites Rheumatoid factor presence: with rheumatoid factor Qualified Code(s): M05.79 - Rheumatoid arthritis with rheumatoid factor of multiple sites without organ or systems involvement Plan: This is a 58-year-old female with seropositive RA who returns for follow-up. She is on methotrexate 20 mg subcutaneously weekly, Rinvoq 15 mg p.o. daily and folic acid 2 mg daily Doing much better overall since Rinvoq was added. She continues to have flare-ups, usually about once a week affecting 1 joint lasting 1 day. Continue Rinvoq 15 mg p.o. 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 - Rheumatoid arthritis with rheumatoid factor of multiple sites without organ or systems involvement, Z79.631 - nursing home (current) use of antimetabolite agent Erythrocyte Sedimentation Rate 3 Months M0. - Rheumatoid arthritis with rheumatoid factor of multiple sites without organ or systems involvement, Z79.631 - terminal supervisor (current) use of antimetabolite agent Comprehensive Met. Panel 3 Months M0. - Rheumatoid arthritis with rheumatoid factor of multiple sites without organ or systems involvement, Z79.631 - nursing home (current) use of antimetabolite agent C Reactive Protein 3 Months M0. - Rheumatoid arthritis with rheumatoid factor of multiple sites without organ or systems involvement, Z79.631 - nursing home (current) use of antimetabolite agent Lipid Panel 3 Months E78.5 - Hyperlipidemia, unspecified Coding Level of Care Code Est Pt Level 4 (04759) Diagnoses Rheumatoid arthritis involving multiple sites with positive rheumatoid factor Rheumatoid arthritis location: multiple sites Rheumatoid factor presence: with rheumatoid factor terminal supervisor methotrexate user Z79.631
[2024-03-21 08:06] VITALS: BP 120/74; PULSE 88; O2SAT 98; BMI 31.4
== END 2024-03-21 08:29 | disposition home or self-care (01) ==
PROVIDERS: PCP Family Medicine; Referring Provider Family Medicine; Visit Provider Student in an Organized Health Care Education/Training Program
DX: M05.79 Rheumatoid arthritis with rheumatoid factor of multiple sites without organ or systems involvement (principal); Z79.631 Long term (current) use of antimetabolite agent
CPT/HCPCS: 99214

== ENCOUNTER → 2024-03-21 07:59 | Outpatient (BNVA) | payer BC, SELFPAY | PROVIDERS: PCP Family Medicine; Visit Provider Student in an Organized Health Care Education/Training Program ==

== ENCOUNTER 2024-06-10 09:02 | Outpatient (REF) | payer BC, SELFPAY | END 2024-06-10 09:03 | disposition home or self-care (01) | LOC: HO.LAB 09:02 | PROVIDERS: PCP Family Medicine; Visit Provider Student in an Organized Health Care Education/Training Program | DX: Z13.89 Encounter for screening for other disorder (principal) ==

== ENCOUNTER 2024-06-13 06:15 | Outpatient (REF) | payer BC, SELFPAY ==
[2024-06-13 06:27] LABS: MANUAL DIFF FLAG NO
[2024-06-13 07:24] LABS: Basophils Absolute Auto 0.1 X10*3/uL (0.0-0.2); Basophils Percent Auto 1.2 % (0-2); Eosinophils Absolute Auto 0.1 X10*3/uL (0.0-0.4); Eosinophils Percent Auto 1.4 % (0-4); Hematocrit 39.4 % (37.0-47.0); Hemoglobin 13.2 g/dl (12.0-16.0); Lymphocytes Absolute Auto 1.8 X10*3/uL (1.2-4.9); Lymphocytes Percent Auto 42.4 % (20-40); Mean Corpuscular HGB Conc 33.5 g/dl (31.0-35.0); Mean Corpuscular Hemoglobin 32.8 pg (27.0-33.0); Mean Platelet Volume 10.6 fL (9.4-12.3); Monocytes Absolute Auto 0.5 X10*3/uL (0.1-1.2); Monocytes Percent Auto 12.4 % (2-11); Neutrophils Absolute Auto 1.8 x10*3/uL (2.0-8.3); Neutrophils Percent Auto 42.6 % (45-73); Platelet Count 309 X10*3/uL (160-400); Red Blood Count 4.02 X10*6/uL (4.20-5.50); Red Cell Distribution Width 14.3 % (11.0-16.0); White Blood Count 4.2 X10*3/uL (4.8-10.8)
[2024-06-13 07:48] LABS: Alanine Aminotransferase 30 U/L (0-31); Albumin Level 3.9 g/dL (3.5-5.0); Alkaline Phosphatase 68 U/L (39-117); Anion Gap 12 (12-20); Aspartate Amino Transferase 27 U/L (5-31); Bilirubin Total 0.4 mg/dL (0.0-1.0); Blood Urea Nitrogen 12 mg/dL (9-16); C Reactive Protein 0.65 mg/dL (< or = 0.50); Calcium 8.7 mg/dL (8.4-10.2); Carbon Dioxide 25 mmol/L (22-29); Chloride 109 mmol/L (96-108); Cholesterol 210 mg/dL (<200); Estimated Glomerular Filt Rate > 60; Glucose Random 96 mg/dL (60-115); HDL Cholesterol 48 mg/dL (>40); LDL Cholesterol Calculated 136 mg/dL (<100); Potassium 4.1 mmol/L (3.3-5.1); Sodium 142 mmol/L (135-145); Total Protein 6.9 g/dL (6.5-8.0); Triglycerides 134 mg/dL (<150)
[2024-06-13 08:06] LABS: Erythrocyte Sedimentation Rate 23 MM/HR (0-20)
== END 2024-06-13 06:16 | disposition home or self-care (01) ==
LOC: HO.LAB 06:15
PROVIDERS: PCP Family Medicine; Visit Provider Student in an Organized Health Care Education/Training Program
DX: M05.79 Rheumatoid arthritis with rheumatoid factor of multiple sites without organ or systems involvement (principal); Z79.631 Long term (current) use of antimetabolite agent; E78.5 Hyperlipidemia, unspecified
CPT/HCPCS: 36415; 80053; 80061; 85025; 85652; 86140

== ENCOUNTER 2024-06-15 07:32 | Outpatient (AMB) | payer BC, SELFPAY ==
--- NOTE | 2024-06-15 07:36 | A.OFFVIS_ITS ---
Vital Signs 06/15/24 07:43 Height 5 ft 8.4 in Weight 208 lb 8.917 oz BMI 31.3 BP 124/80 Blood Pressure Location Lt brachial Position Sitting Respiration 16 Pulse 82 Pulse Source Pulse Oximeter Pulse Oximetry (%) 98 Oxygen Delivery Method Room Air Intake Visit Reasons: RA/CM APT Intake Note: Patient presents for RA. Allergies adalimumab [From Humira] Adverse Reaction (Mild, Verified 06/15/24 07:40) Neuropathy Medication List - Last Reconciled 06/15/24 by Yoanna Hudson MD calcium carbonate-vitamin D3 600 mg-5 mcg (200 unit) 1 tab PO DAILY cetirizine (Zyrtec) 10 mg PO DAILY PRN famotidine 20 mg PO DAILY folic acid 2 mg (2 x 1 mg) PO DAILY furosemide 20 mg PO DAILY insulin syringe-needle U-100 (Advocate Syringes) weekly with methotrexate magnesium 250 mg PO DAILY melatonin 10 mg PO BEDTIME PRN methotrexate sodium (PF) 20 mg (0.8 mL) subcut QWEEK Rinvoq ER (upadacitinib) 15 mg PO DAILY NS HPI Comments Details: 58-year-old female with seropositive RA returns for follow-up. She is on Rinvoq 15 mg p.o. daily and methotrexate 20 mg subcutaneously weekly and folic acid 2 mg daily. She states that she continues to have intermittent flare-ups. He continues to have good and bad days. She would still get joint pains and swelling that affect different joints on different days such as her knees, hands, ankles, feet. Would usually ice the joint and take Tylenol. She states that these episodes do not last more than a day. Does not take NSAIDs. She states that she recently went to an orthotics place and had orthotics custom made for her. They have been very helpful. She denies any recent illnesses or infections. Initial history: This is a 57-year-old female with seropositive RA who presents with new patient. Her previous coil wrapper left the practice. Patient states that her symptoms started back in summer with poly arthritis. She was diagnosed with rheumatoid arthritis and was started on methotrexate. She took methotrexate for approximately 6 months without much improvement. Humira was added and after 4 months she had burning peripheral neuropathy. She was evaluated by a neurologist, This was attributed to Humira and Humira was since discontinued. She states that her neuropathy improved after Humira was discontinued, but she states that she continues to have some neuropathy symptoms in her feet. She was off biologics for a few months and she was started on Kevzara back in March of 2022. Patient has been doing very well overall until last week when she developed migratory an additive joint pain and swelling affecting her right ankle, knee and hip. Today she only has pain in her right 3rd MCP. In flares patient takes Tylenol and takes 1 Aleve 400 mg a day. [facility] Medical History Female infertility Presbyopia Tendinitis Allergic rhinitis due to pollen Congenital anomaly of skin Mammogram abnormal Urticaria Rheumatoid arthritis Surgical History H/O: Hx of colonoscopy Hx of tonsillectomy Family History Mother Bladder cancer Leukemia Malignant tumor of breast Father Gout Myocardial infarction FH: prostate cancer Brother Hypertension Sister Hypertension Social History Household Members: Spouse and Children Alcohol intake: current Alcohol intake frequency: holidays/special occasions only Patient Tobacco Use Status: Never used Tobacco Current occupational status: employed 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 Female Reproductive History Menstrual Total pregnancies: 2 Number of Living Children: 3 Review of Systems Musc Reports arthralgias, Reports joint swelling and Reports stiffness Physical Exam Vital Signs: Last Vital Signs Pulse 82 06/15/24 07:43 Resp 16 06/15/24 07:43 BP 124/80 06/15/24 07:43 Pulse Ox 98 06/15/24 07:43 Oxygen Delivery Method Room Air 06/15/24 07:43 BMI result Body Mass Index 31.3 Const General: cooperative, healthy appearing and comfortable Nutritional Appearance: obese Orientation/consciousness: patient oriented x3 Limitations: no limitations HEENT Head: Yes normocephalic and Yes atraumatic Mouth: moist mucous membranes Resp Effort & Inspection: normal respiratory effort and able to speak in complete sentences Cardio Rate: regular rate Rhythm: regular rhythm GI Inspection: No distended Palpation (GI): Soft to palpation and nontender Neuro General: patient oriented x3 Extrem Other: No elbow pain with flexion and extension bilaterally Normal pain-free range of motion of shoulders No active synovitis both hands and wrists today Negative MTP squeeze test bilaterally Small left bunionette, not tender No knee pain with full flexion-extension Results Reviewed Results Reviewed: Laboratory Tests 06/13/24 06:26 Triglycerides 134 Cholesterol 210 H LDL Cholesterol, Calc 136 H HDL Cholesterol 48 Assessment & Plan Assessment & Plan (1) Rheumatoid arthritis: Comment: ++RF, +++CCP dx 01/2020 MTX started 2020 for 6 months without improvement, then Humira was added Humira DC in 12/2020 due to peripheral neuropathy. Neuropathy improved after Discontinuation Kevzara added 04/16-07/2023 DC due to secondary nonresponse Actemra weekly 07/2023 effective. DC 11/2023 2ry nonresponse Rinvoq 11/2023 effective Code(s): M06.9 - Rheumatoid arthritis, unspecified Category: Medical Qualifiers: Rheumatoid arthritis location: multiple sites Rheumatoid factor presence: with rheumatoid factor Qualified Code(s): M05.79 - Rheumatoid arthritis with rheumatoid factor of multiple sites without organ or systems involvement Plan: This is a 58-year-old female with seropositive RA who returns for follow-up. She is on methotrexate 20 mg subcutaneously weekly, Rinvoq 15 mg p.o. daily and folic acid 2 mg daily Doing very well overall. She continues to have intermittent short-lived flare- ups. Continue current meds Labs before next visit in 4 months (2) longterm methotrexate user: Code(s): Z79.631 - superintendent terminal (current) use of antimetabolite agent Category: Medical Plan: Monitor safety labs Monitor cholesterol profile. Discussed diet and exercise Side effects of Rinvoq were discussed with the patient in detail including increased risk of infection, reactivation of latent TB, possible increased risk of solid and skin tumors. We discussed the black box warning including mildly increased risk of cardiovascular events, thromboembolic phenomenon and malignancy. Patient fully aware. Advised patient to seek medical care [facility] if patient has an infection and advised patient to stop the medication until the infection is resolved. (3) Neuropathy: Code(s): G62.9 - Polyneuropathy, unspecified Category: Medical Plan: Continues to be symptomatic. Alpha lipoic acid trial (4) Immunization counseling: Code(s): Z71.85 - Encounter for immunization safety counseling Category: Medical Plan: Patient received flu vaccine and COVID booster for this season. She has r eceived Shingrix vaccine in the past Plan I spent 32 minutes reviewing patient's chart, evaluating patient, ordering diagnostic workup, counseling patient and documenting in the chart Orders: Orders Complete Blood Count Auto Diff 3 Months M05.79 - Rheumatoid arthritis with rheumatoid factor of multiple sites without organ or systems involvement, Z79.631 - longterm (current) use of antimetabolite agent Comprehensive Met. Panel 3 Months M05.79 - Rheumatoid arthritis with rheumatoid factor of multiple sites without organ or systems involvement, Z79.631 - superintendent terminal (current) use of antimetabolite agent Erythrocyte Sedimentation Rate 3 Months M05.79 - Rheumatoid arthritis with rheumatoid factor of multiple sites without organ or systems involvement, Z79.631 - superintendent terminal (current) use of antimetabolite agent Lipid Panel 4 Months E78.5 - Hyperlipidemia, unspecified C Reactive Protein 3 Months M05.79 - Rheumatoid arthritis with rheumatoid factor of multiple sites without organ or systems involvement, Z79.631 - superintendent terminal (current) use of antimetabolite agent Medications: New alpha lipoic acid 600 mg PO DAILY 30 tabs 0RF Coding Level of Care Code Est Pt Level 5 (49450) Complex EM visit Add On G2211 Diagnoses Rheumatoid arthritis involving multiple sites with positive rheumatoid factor M05.79 Rheumatoid arthritis location: multiple sites Rheumatoid factor presence: with rheumatoid factor superintendent terminal methotrexate user Z79.631 Neuropathy G62.9 Immunization counseling Z71.85
[2024-06-15 07:43] VITALS: BP 124/80; PULSE 82; RESP 16; O2SAT 98; BMI 31.3
== END 2024-06-15 08:11 | disposition home or self-care (01) ==
PROVIDERS: PCP Family Medicine; Visit Provider Student in an Organized Health Care Education/Training Program
DX: M05.79 Rheumatoid arthritis with rheumatoid factor of multiple sites without organ or systems involvement (principal); Z79.631 Long term (current) use of antimetabolite agent; G62.9 Polyneuropathy, unspecified; Z71.85 Encounter for immunization safety counseling
CPT/HCPCS: 99214

== ENCOUNTER → 2024-06-15 07:32 | Outpatient (BNVA) | payer BC, SELFPAY | PROVIDERS: PCP Family Medicine; Visit Provider Student in an Organized Health Care Education/Training Program ==

== ENCOUNTER 2024-10-12 07:26 | Outpatient (REF) | payer BC, SELFPAY ==
[2024-10-12 10:24] LABS: MANUAL DIFF FLAG NO
[2024-10-12 10:32] LABS: Basophils Percent Auto 0.5 % (0-2); Eosinophils Percent Auto 0.5 % (0-4); Hematocrit 37.5 % (37.0-47.0); Imm Gran Abs Auto 0.02 X10*3/uL (0.00-0.03); Imm Gran Pct Auto 0.3 % (0.0-0.4); Lymphocytes Absolute Auto 1.6 X10*3/uL (1.2-4.9); Lymphocytes Percent Auto 25.2 % (20-40); Mean Corpuscular HGB Conc 34.7 g/dl (31.0-35.0); Mean Corpuscular Hemoglobin 33.2 pg (27.0-33.0); Mean Corpuscular Volume 95.7 fL (80.0-98.0); Mean Platelet Volume 10.9 fL (9.4-12.3); Monocytes Absolute Auto 0.8 X10*3/uL (0.1-1.2); Monocytes Percent Auto 12.4 % (2-11); Neutrophils Absolute Auto 3.9 x10*3/uL (2.0-8.3); Neutrophils Percent Auto 61.1 % (45-73); Platelet Count 286 X10*3/uL (160-400); Red Blood Count 3.92 X10*6/uL (4.20-5.50); Red Cell Distribution Width 13.7 % (11.0-16.0); White Blood Count 6.4 X10*3/uL (4.8-10.8)
[2024-10-12 10:58] LABS: Alanine Aminotransferase 23 U/L (0-31); Albumin Level 3.9 g/dL (3.5-5.0); Alkaline Phosphatase 67 U/L (39-117); Anion Gap 11 (12-20); Aspartate Amino Transferase 22 U/L (5-31); Bilirubin Total 0.6 mg/dL (0.0-1.0); Blood Urea Nitrogen 12 mg/dL (9-16); C Reactive Protein 1.34 mg/dL (< or = 0.50); Calcium 8.7 mg/dL (8.4-10.2); Carbon Dioxide 25 mmol/L (22-29); Chloride 107 mmol/L (96-108); Cholesterol 189 mg/dL (<200); Estimated Glomerular Filt Rate > 60; Glucose Random 94 mg/dL (60-115); HDL Cholesterol 46 mg/dL (>40); LDL Cholesterol Calculated 121 mg/dL (<100); Sodium 139 mmol/L (135-145); Total Protein 7.2 g/dL (6.5-8.0); Triglycerides 114 mg/dL (<150)
[2024-10-12 11:16] LABS: Erythrocyte Sedimentation Rate 17 MM/HR (0-20)
== END 2024-10-12 07:27 | disposition home or self-care (01) ==
LOC: HO.10HDL 07:26
PROVIDERS: Visit Provider Student in an Organized Health Care Education/Training Program
DX: M05.79 Rheumatoid arthritis with rheumatoid factor of multiple sites without organ or systems involvement (principal); E78.5 Hyperlipidemia, unspecified; Z79.631 Long term (current) use of antimetabolite agent
CPT/HCPCS: 36415; 80053; 80061; 85025; 85652; 86140

== ENCOUNTER 2024-10-13 07:28 | Outpatient (AMB) | payer BC, SELFPAY ==
--- NOTE | 2024-10-13 07:43 | MHC.OFFVIS ---
Vital Signs 10/13/24 08:08 Height 5 ft 8.4 in Weight 205 lb 11.06 oz BMI 30.9 BP 124/72 Blood Pressure Location Lt brachial Position Sitting Pulse 75 Pulse Source Pulse Oximeter Pulse Oximetry (%) 97 Intake Visit Reasons: RA Allergies adalimumab [From Humira] Adverse Reaction (Mild, Verified 06/15/24 07:40) Neuropathy Medication List - Last Reconciled 10/13/24 by Kay Tucker MD acyclovir 800 mg PO TID 7 days alpha lipoic acid 600 mg PO DAILY calcium carbonate-vitamin D3 600 mg-5 mcg (200 unit) 1 tab PO DAILY cetirizine (Zyrtec) 10 mg PO DAILY PRN famotidine 20 mg PO DAILY folic acid 2 mg (2 x 1 mg) PO DAILY furosemide 20 mg PO DAILY PRN insulin syringe-needle U-100 (Advocate Syringes) weekly with methotrexate magnesium 250 mg PO DAILY melatonin 10 mg PO BEDTIME PRN methotrexate sodium (PF) 20 mg (0.8 mL) subcut QWEEK 90 days Rinvoq ER (upadacitinib) 15 mg PO DAILY NS HPI Comments Details: Patient is a 59-year-old female with hyperlipidemia and seropositive rheumatoid arthritis complicated by neuropathy secondary to Humira use here today for follow up Interval History: Patient last seen 06/15/[address] Hudson. At that time she was on Rinvoq 50 mg daily and methotrexate 20 mg weekly with folic acid 2 mg daily. Continued to have intermittent flare-ups with good days and bad days. Lipoic acid was added to her regimen for her neuropathy pains. Continues to have intermittent flare-ups which sometimes lasts 1-2 days. Sometimes she will take 1 or 2 days of ibuprofen which will help. Has been having worsening of her herpes simplex rash involving her face. Rheumatologic History: ++RF, +++CCP dx 01/2020 MTX started 2020 for 6 months without improvement, then Humira was added Humira DC in 12/2020 due to peripheral neuropathy. Neuropathy improved after Discontinuation Kevzara added 04/16-07/2023 DC due to secondary nonresponse Actemra weekly 07/2023 effective. DC 11/2023 2ry nonresponse Rinvoq 11/2023 effective Initial history: This is a 57-year-old female with seropositive RA who presents with new patient. Her previous crayon sawyer left the practice. Patient states that her symptoms started back in summer with poly arthritis. She was diagnosed with rheumatoid arthritis and was started on methotrexate. She took methotrexate for approximately 6 months without much improvement. Humira was added and after 4 months she had burning peripheral neuropathy. She was evaluated by a neurologist, This was attributed to Humira and Humira was since discontinued. She states that her neuropathy improved after Humira was discontinued, but she states that she continues to have some neuropathy symptoms in her feet. She was off biologics for a few months and she was started on Kevzara back in March of 2022. Patient has been doing very well overall until last week when she developed migratory an additive joint pain and swelling affecting her right ankle, knee and hip. Today she only has pain in her right 3rd MCP. In flares patient takes Tylenol and takes 1 Aleve 400 mg a day. Current Rheumatology Medication(s): Rinvoq 15 mg daily Methotrexate 20 mg sc weekly Folic acid 2 mg daily PFSH Medical History Female infertility Presbyopia Tendinitis Allergic rhinitis due to pollen Congenital anomaly of skin Mammogram abnormal Urticaria Rheumatoid arthritis Surgical History H/O: Hx of colonoscopy Hx of tonsillectomy Family History Mother Bladder cancer Leukemia Malignant tumor of breast Father Gout Myocardial infarction FH: prostate cancer Brother Hypertension Sister Hypertension Social History Household Members: Spouse and Children Alcohol intake: current Alcohol intake frequency: holidays/special occasions only Patient Tobacco Use Status: Never used Tobacco Current occupational status: employed 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 of Systems Const Details: Review of Systems Constitutional: Denies fever, chills, weight loss ENT: Denies vision changes, eye pain or eye redness, dental caries, dry mouth GI: Denies nausea, vomiting, diarrhea, abdominal pain, change in BM Pulm: Denies SOB, ANDERSON, hemoptysis, wheezing Cards: Denies chest pain, palpitations Skin: Denies Raynaud's, nail changes, photosensitivity, GRAPHITE MILL OPERATOR: Denies headaches, weakness, paresthesias, recurrent falls MSK: as per HPI All other systems reviewed and are unremarkable except noted above Physical Exam Vital signs reviewed Physical Examination CONSTITUITIONAL Patient alert and cooperative. Well appearing and in no apparent painful distress HEENT Conjunctiva and sclera clear. ?Pupils equal round and reactive to light. ?No lymphadenopathy. ? CHEST/RESPIRATORY SYSTEM Normal respiratory effort and able to speak in complete sentences. ?Clear to auscultation bilaterally. ?No crackles, rales, rhonchi, wheezes heard. CARDIAC SYSTEM Regular rate and rhythm. ?S1 and S2 heard no murmurs. ?Radial pulses intact bilaterally MSK Hands: ?Good portrait studio photographer strength bilaterally. No deformities noted. ?No synovitis noted to the MCPs, PIPs or DIPs. ?No tenderness to palpation of these joints. Wrists: ?Full range of motion at the wrists without pain. ?No tenderness to palpation or synovitis noted to the wrists. Elbows: Full range of motion without pain. No tenderness, weakness, swelling, increased warmth or erythema. Shoulders: Full range of motion without pain. No tenderness, weakness, swelling, increased warmth or erythema. Hips: Full range of motion without pain. Hip bursa: No tenderness to palpation Knees: ?Full range of motion. ?No tenderness, swelling, increased warmth or erythema. Bilateral crepitations felt Ankles: Full range of motion. ?No tenderness, swelling, increased warmth or erythema.? Feet: ?Negative squeeze test. ?No tenderness to palpation or swelling of the MTPs. Tender points:?No tenderness to palpation of the bilateral trapezius, supraspinatus, greater trochanters, anterior costochondral junctions, bilateral gluteal areas, bilateral suboccipital muscle insertions SKIN Erythematous vesicles noted to face Results Reviewed Results Reviewed: Laboratory Tests 06/13/24 10/12/24 06:26 07:28 WBC 6.4 RBC 3.92 L Hgb 13.0 Hct 37.5 Plt Count 286 ESR 17 Sodium 139 Potassium 4.0 Chloride 107 Carbon Dioxide 25 BUN 12 Creatinine 0.74 Calcium 8.7 Total Bilirubin 0.6 AST 22 ALT 23 Alkaline Phosphatase 67 C-Reactive Protein 0.65 H 1.34 H Assessment & Plan Assessment & Plan (1) Rheumatoid arthritis: Comment: ++RF, +++CCP dx 01/2020 MTX started 2021 for 6 months without improvement, then Humira was added Humira DC in 12/2020 due to peripheral neuropathy. Neuropathy improved after Discontinuation Kevzara added 04/16-07/2023 DC due to secondary nonresponse Actemra weekly 07/2023 effective. DC 11/2023 2ry nonresponse Rinvoq 11/2023 effective Code(s): M06.9 - Rheumatoid arthritis, unspecified Category: Medical Qualifiers: Rheumatoid arthritis location: multiple sites Rheumatoid factor presence: with rheumatoid factor Qualified Code(s): M05.79 - Rheumatoid arthritis with rheumatoid factor of multiple sites without organ or systems involvement Plan: #Seropositive RA Patient is a 59-year-old female with seropositive rheumatoid arthritis here today for follow up. Patient currently in remission on Rinvoq and subcutaneous methotrexate weekly. Overall doing well. Does have intermittent mouth flare-ups especially during the warmer months. Recommending short courses of ibuprofen for no more than 2 through 3 days. If she has a flare lasting longer than 3-4 days she should contact the office. Plan - Rinvoq 15 mg daily - Methotrexate 20 mg weekly - Folic acid 2 mg daily - Alpha lipoic acid 600 mg daily for neuropathy - Acyclovir 800mg tid x 7 days for herpes simplex - RTC 4 months - Labs before visit: CBC, CMP, ESR, CRP, hepatitis panel, T spot (2) penitentiary methotrexate user: Code(s): Z79.631 - termite treater helper (current) use of antimetabolite agent Category: Medical Plan: #Long-term Current Use of Methotrexate Discussed with patient the benefits and risks of methotrexate for managing their rheumatic condition Benefits include reduced pain, reduced mortality, maintenance of remission and reduction of flares Risks include oral ulcers, photosensitivity, hepatotoxicity, hematologic toxicity, pneumonitis, flu-like symptoms (especially day after administration), nodulosis, lymphomas ? Limit alcohol and avoid Bactrim ? Monitoring: ?CBC, BMP, LFTs every 3-4 months and hepatitis serologies as needed (3) Long-term current use of Janus kinase inhibitor: Code(s): Z79.622 - termite treater helper (current) use of Janus kinase inhibitor Plan: #Long-term Use of CAYDEN inhibitor: Rinvoq Discussed with patient the benefits and risks of CAYDEN inhibitors for the management of the rheumatic condition Benefits include reduce pain, maintenance of remission and reduction of flares Risks include thromboembolic events, skin cancer and nonmelanoma skin cancers, other forms of cancer, cardiovascular alcohol and mortality Advise patient that they are to hold the medication and for up to 1 week after a febrile illness or an open skin wound Plan I spent 36 minutes reviewing the record and labs, taking a history, examining the patient, discussing the treatment plan, ordering diagnostic work up and documenting in the medical record Orders: Orders Comprehensive Met. Panel 4 Months M05.79 - Rheumatoid arthritis with rheumatoid factor of multiple sites without organ or systems involvement, Z79.622 - penitentiary (current) use of Janus kinase inhibitor, Z79.631 - penitentiary (current) use of antimetabolite agent Erythrocyte Sedimentation Rate 4 Months M05.79 - Rheumatoid arthritis with rheumatoid factor of multiple sites without organ or systems involvement, Z79.622 - termite treater helper (current) use of Janus kinase inhibitor, Z79.631 - penitentiary (current) use of antimetabolite agent T Spot TB Today M05.79 - Rheumatoid arthritis with rheumatoid factor of multiple sites without organ or systems involvement, Z79.622 - termite treater helper (current) use of Janus kinase inhibitor, Z79.631 - termite treater helper (current) use of antimetabolite agent Complete Blood Count Auto Diff 4 Months M05.79 - Rheumatoid arthritis with rheumatoid factor of multiple sites without organ or systems involvement, Z79.622 - termite treater helper (current) use of Janus kinase inhibitor, Z79.631 - penitentiary (current) use of antimetabolite agent C Reactive Protein 4 Months M05.79 - Rheumatoid arthritis with rheumatoid factor of multiple sites without organ or systems involvement, Z79.622 - termite treater helper (current) use of Janus kinase inhibitor, Z79.631 - penitentiary (current) use of antimetabolite agent Hepatitis A,B,C Profile Today M05.79 - Rheumatoid arthritis with rheumatoid factor of multiple sites without organ or systems involvement, Z79.622 - termite treater helper (current) use of Janus kinase inhibitor, Z79.631 - penitentiary (current) use of antimetabolite agent Medications: New acyclovir 800 mg PO TID 7 days 21 tabs 0RF B00.9 - Herpesviral infection, unspecified Refilled methotrexate sodium (PF) 20 mg (0.8 mL) subcut QWEEK 90 days 24 mL 1RF M05.79 - Rheumatoid arthritis with rheumatoid factor of multiple sites without organ or systems involvement insulin syringe-needle U-100 (Advocate Syringes) weekly with methotrexate 10 ea 1RF M06.9 - Rheumatoid arthritis, unspecified, Z79.631 - penitentiary (current) use of antimetabolite agent alpha lipoic acid 600 mg PO DAILY 30 tabs 3RF M05.79 - Rheumatoid arthritis with rheumatoid factor of multiple sites without organ or systems involvement Rinvoq ER (upadacitinib) 15 mg PO DAILY 30 tabs 5RF NS M05.79 - Rheumatoid arthritis with rheumatoid factor of multiple sites without organ or systems involvement folic acid 2 mg (2 x 1 mg) PO DAILY 180 tabs 1RF Coding Level of Care Code Est Pt Level 4 (67143) Complex EM visit Add On G2211 Diagnoses Rheumatoid arthritis involving multiple sites with positive rheumatoid factor M05.79 Rheumatoid arthritis location: multiple sites Rheumatoid factor presence: with rheumatoid factor penitentiary methotrexate user Z79.631 Long-term current use of Janus kinase inhibitor Z79.622
[2024-10-13 08:08] VITALS: BP 124/72; PULSE 75; O2SAT 97; BMI 30.9
== END 2024-10-13 08:12 | disposition home or self-care (01) ==
LOC: HO.RHE 07:28
PROVIDERS: PCP Family Medicine; Visit Provider Student in an Organized Health Care Education/Training Program
DX: M05.79 Rheumatoid arthritis with rheumatoid factor of multiple sites without organ or systems involvement (principal); Z79.631 Long term (current) use of antimetabolite agent; Z79.622 Long term (current) use of Janus kinase inhibitor
CPT/HCPCS: 99214

== ENCOUNTER → 2024-10-13 07:28 | Outpatient (BNVA) | payer BC, SELFPAY | PROVIDERS: PCP Family Medicine; Visit Provider Student in an Organized Health Care Education/Training Program ==

== ENCOUNTER 2025-02-13 12:12 | Outpatient (REF) | payer BC, SELFPAY ==
[2025-02-13 13:14] LABS: MANUAL DIFF FLAG NO
--- OUTSIDE RECORDS SUMMARY | 2025-02-13 13:18 | XMS_ITS | Encounter Summary ---
Author Organization [facility] Address [address] [place] [address] [place] [phone] Phone Care Team Providers Care Printing Services Coordinator Name Role Phone Nader Sahu MD Primary Care Prov ider Encounter Details Date Type Department Care Team (Late st Contact Info) Description 10/13/2018 Procedure Pass [facility] Endoscopy Admitting Dept Virtual Department [address] [place] [address] Social History Tobacco Use Types Packs/Day Years Used Date Smoking Tobacco: Former Smokeless Tobacco: Never Alcohol Use Standard Drinks/Week Comments Yes 0 (1 standard drink = 0.6 oz pur e alcohol) very rare Comments Unknown Sex and Gender Information Value Date Recorded Sex Assigned at Not on file Legal Sex Female 9:43 PM EDT Gender Identity Not on file Sexual Orientation Not on file documented as of this encounter Plan of Treatment Not on file documented as of this encounter Visit Diagnoses Not on filedocumented in this encounter Care Teams Printing Services Coordinator Relationship Specialty Start Date End Date Nader Sahu MD [address] [place] [phone] [email or web address] [email or web address] - General 05/10/17 documented as of this encounter Additional Source Comments The information contained in this document represents components of the legal health record. It is not the complete legal health record.[facility]
[2025-02-13 13:56] LABS: Hematocrit 37.5 % (37.0-47.0); Hemoglobin 12.4 g/dl (12.0-16.0); Imm Gran Pct Auto 0.5 % (0.0-0.4); Mean Corpuscular HGB Conc 33.1 g/dl (31.0-35.0); Mean Corpuscular Hemoglobin 32.5 pg (27.0-33.0); Mean Corpuscular Volume 98.4 fL (80.0-98.0); Platelet Count 256 X10*3/uL (160-400); Red Blood Count 3.81 X10*6/uL (4.20-5.50); White Blood Count 4.4 X10*3/uL (4.8-10.8)
[2025-02-13 13:57] LABS: Imm Gran Abs Auto 0.02 X10*3/uL (0.00-0.03); Lymphocytes Absolute Auto 1.3 X10*3/uL (1.2-4.9); NRBC Abs Auto 0.000 X10*3/uL (0.0-0.012); NRBC Pct Auto 0.0 /100WBC (0.0-0.2)
[2025-02-13 14:13] LABS: Alanine Aminotransferase 25 U/L (0-31); Albumin Level 4.1 g/dL (3.5-5.0); Alkaline Phosphatase 69 U/L (39-117); Anion Gap 9 (12-20); Aspartate Amino Transferase 24 U/L (5-31); Blood Urea Nitrogen 14 mg/dL (9-16); Calcium 8.2 mg/dL (8.4-10.2); Carbon Dioxide 26 mmol/L (22-29); Chloride 111 mmol/L (96-108); Estimated Glomerular Filt Rate > 60; Potassium 4.1 mmol/L (3.3-5.1); Sodium 142 mmol/L (135-145); Total Protein 6.9 g/dL (6.5-8.0)
== END 2025-02-13 12:13 | disposition home or self-care (01) ==
LOC: HO.10HDL 12:12
PROVIDERS: Visit Provider Student in an Organized Health Care Education/Training Program
DX: M05.79 Rheumatoid arthritis with rheumatoid factor of multiple sites without organ or systems involvement (principal); Z79.631 Long term (current) use of antimetabolite agent; Z79.622 Long term (current) use of Janus kinase inhibitor
CPT/HCPCS: 36415; 80053; 85025; 85652; 86140

== ENCOUNTER 2025-02-14 07:34 | Outpatient (AMB) | payer BC, SELFPAY ==
--- OUTSIDE RECORDS SUMMARY | 2025-02-14 07:36 | XMS_ITS | Encounter Summary ---
Author Organization [facility] Address [address] [place] [address] [place] [phone] Phone Care Team Providers Care Hospital Chief Financial Officer Name Role Phone Nader Sahu MD Primary Care Prov ider Encounter Details Date Type Department Care Team (Late st Contact Info) Description 10/13/2018 Procedure Pass [facility] Endoscopy Admitting Dept Virtual Department [address] [place] [address] Social History Tobacco Use Types Packs/Day Years [...] on filedocumented in this encounter Care Teams Hospital Chief Financial Officer Relationship Specialty Start Date End Date Nader Sahu MD [address] [place] [phone] [email or web address] [email or web address] - General 05/10/17 documented as of this encounter Additional Source Comments The information contained in this document represents components of the legal health record. It is not the complete legal health record.[facility]
--- NOTE | 2025-02-14 07:41 | A.OFFVIS_ITS ---
Vital Signs 02/14/25 07:42 Height 5 ft 8.4 in Weight 206 lb 5.643 oz BMI 31.0 BP 118/70 Blood Pressure Location Lt brachial Position Sitting Pulse 75 Pulse Source Pulse Oximeter Pulse Oximetry (%) 98 Oxygen Delivery Method Room Air Intake Visit Reasons: RA Intake Note: Patient last seen by Kay Tucker on 10/13/24. Presents today for RA follow up and test results. Allergies adalimumab (From Humira) Adverse Reaction (Mild, Verified 02/14/25 07:44) Neuropathy Medication List - Last Reconciled 02/14/25 by Kay Tucker MD acetaminophen (Tylenol Extra Strength) 1,000 mg PO Q6H PRN alpha lipoic acid 600 mg PO DAILY calcium carbonate-vitamin D3 600 mg-5 mcg (200 unit) 1 tab PO DAILY cetirizine (Zyrtec) 10 mg PO DAILY PRN famotidine 20 mg PO DAILY folic acid 2 mg (2 x 1 mg) PO DAILY furosemide 20 mg PO DAILY PRN ibuprofen (Pain Relief (ibuprofen)) 600 mg PO Q6H insulin syringe-needle U-100 ([facility] Syringes) weekly with methotrexate magnesium 250 mg PO DAILY melatonin 10 mg PO BEDTIME PRN methotrexate sodium (PF) 20 mg (0.8 mL) subcut QWEEK 90 days Rinvoq ER (upadacitinib) 15 mg PO DAILY NS HPI Comments Details: Patient is a 59-year-old female with hyperlipidemia and seropositive rheumatoid arthritis 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 Sometimes she will take 1 or 2 days of ibuprofen which will help. - Has been having worsening of her herpes simplex rash involving her face. - Alpha lipoic acid really helpful Today - doing well overall - still has intermittent joint pains but it has been an overall - Has been having a good summer - Asking for prn ibuprofen 600mg Rheumatologic History: ++RF, +++CCP dx 01/2020 MTX started 2020 for 6 months without improvement, then Humira was added Humira DC in 12/2020 due to peripheral neuropathy. Neuropathy improved after Discontinuation Kevzara added 04/16-07/2023 DC due to secondary nonresponse Actemra weekly 07/2023 effective. DC 11/2023 2ry nonresponse Rinvoq 11/2023 effective Initial history: This is a 57-year-old female with seropositive RA who presents with new patient. 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 Patient states that her symptoms started back in summer with poly arthritis. She was diagnosed with rheumatoid arthritis and was started on methotrexate. She took methotrexate for approximately 6 months without much improvement. Humira was added and after 4 months she had burning peripheral neuropathy. She was evaluated by a neurologist, This was attributed to Humira and Humira was since discontinued. She states that her neuropathy improved after Humira was discontinued, but she states that she continues to have some neuropathy symptoms in her feet. She was off biologics for a few months and she was started on Kevzara back in March of 2022. Patient has been doing very well overall until last week when she developed migratory an additive joint pain and swelling affecting her right ankle, knee and hip. Today she only has pain in her right 3rd MCP. In flares patient takes Tylenol and takes 1 Aleve 400 mg a day. Current Rheumatology Medication(s): Rinvoq 15 mg daily Methotrexate 20 mg sc weekly Folic acid 2 mg daily [facility] Medical History Female infertility Presbyopia Tendinitis Allergic rhinitis due to pollen Congenital anomaly of skin Mammogram abnormal Urticaria Rheumatoid arthritis Surgical History H/O: Hx of colonoscopy Hx of tonsillectomy Family History Mother Bladder cancer Leukemia Malignant tumor of breast Father Gout Myocardial infarction FH: prostate cancer Brother Hypertension Sister Hypertension Social History Household Members: Spouse and Children Alcohol intake: current Alcohol intake frequency: holidays/special occasions only Patient Tobacco Use Status: Never used Tobacco Current occupational status: employed 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 [employer] Details: Review of Systems Constitutional: Denies fever, chills, weight loss ENT: Denies vision changes, eye pain or eye redness, dental caries, dry mouth GI: Denies nausea, vomiting, diarrhea, abdominal pain, change in BM Pulm: Denies SOB, ANDERSON, hemoptysis, wheezing Cards: Denies chest pain, palpitations Skin: Denies Raynaud's, rash, nail changes, photosensitivity, DISCHARGE SPECIALIST: Denies headaches, weakness, paresthesias, recurrent falls MSK: as per HPI All other systems reviewed and are unremarkable except noted above Physical Exam Exam Exam: Vital signs reviewed Physical Examination CONSTITUITIONAL Patient alert and cooperative. Well appearing and in no apparent painful distress HEENT Conjunctiva and sclera clear. No lymphadenopathy. CHEST/RESPIRATORY SYSTEM Normal respiratory effort and able to speak in complete sentences. Clear to auscultation bilaterally. No crackles, rales, rhonchi, wheezes heard. CARDIAC SYSTEM Regular rate and rhythm. S1 and S2 heard no murmurs. Radial pulses intact bilaterally MSK Hands * Right Hand: Able to make a fist. No swelling or tenderness to palpation of these joints. No deformities noted. * Left Hand: Able to make a fist. No swelling or tenderness to palpation of these joints. No deformities noted. Wrists * Right Wrist: Full ROM. 70 degrees of wrist flexion, 80 degrees of wrist extension. No swelling or TTP * Left Wrist: Full ROM. 70 degrees of wrist flexion, 80 degrees of wrist extension. No swelling or TTP Elbows * Right Elbow: Full ROM. No swelling or TTP. No TTP of the medial and lateral epicondyles * Left Elbow: Full ROM. No swelling or TTP. No TTP of the medial and lateral epicondyles Shoulders * Right shoulder: Full ROM. No swelling noted. No TTP of the AC joint, subacromial bursa or posterior shoulder * Left shoulder: Full ROM. No swelling noted. No TTP of the AC joint, subacromial bursa or posterior shoulder Knees * Right knee: Full ROM. No swelling noted. No TTP of the knee joint lie or pes anserine bursa * Left knee: Full ROM. No swelling noted. No TTP of the knee joint lie or pes anserine bursa. * Crepitations felt bilaterally Ankles * Right ankle: Good ankle dorsiflexion and plantar flexion. No swelling. No TTP of the ankle joint * Left ankle: Good ankle dorsiflexion and plantar flexion. No swelling. No TTP of the ankle joint Feet * Right foot: Negative squeeze test * Left foot: Negative squeeze test Tender points? * No tenderness to palpation of the bilateral trapezius, supraspinatus, anterior costochondral junctions, bilateral suboccipital muscle insertions SKIN Facial rash noted Vital Signs: BMI result Body Mass Index 31.0 Results Reviewed Results Reviewed: Laboratory Tests 02/13/25 12:20 WBC 4.4 L RBC 3.81 L Hgb 12.4 Hct 37.5 Plt Count 256 ESR 16 Sodium 142 Potassium 4.1 Chloride 111 H Carbon Dioxide 26 BUN 14 Creatinine 0.65 Calcium 8.2 L AST 24 ALT 25 C-Reactive Protein 0.26 Assessment & Plan Assessment & Plan (1) Rheumatoid arthritis: Comment: ++RF, +++CCP dx 01/2020 MTX started 2020 for 6 months without improvement, then Humira was added Humira DC in 12/2020 due to peripheral neuropathy. Neuropathy improved after Discontinuation Kevzara added 04/16-07/2023 DC due to secondary nonresponse Actemra weekly 07/2023 effective. DC 11/2023 2ry nonresponse Rinvoq 11/2023 effective Code(s): M06.9 - Rheumatoid arthritis, unspecified Category: Medical Qualifiers: Rheumatoid arthritis location: multiple sites Rheumatoid factor presence: with rheumatoid factor Qualified Code(s): M05.79 - Rheumatoid arthritis with rheumatoid factor of multiple sites without organ or systems involvement Plan: #Seropositive RA Patient is a 59-year-old female with seropositive rheumatoid arthritis here today for follow up. Patient currently in remission on Rinvoq and subcutaneous methotrexate weekly. Overall doing well. Does have intermittent mouth flare- ups especially during the warmer months. Recommending short courses of ibuprofen for no more than 2 through 3 days. If she has a flare lasting longer than 3-4 days she should contact the office. Plan - Rinvoq 15 mg daily - Methotrexate 20 mg weekly - Folic acid 2 mg daily - Alpha lipoic acid 600 mg daily for neuropathy - Ibuprofen 600mg prn 10 tabs per month - RTC 6 months - Labs before visit: CBC, CMP, ESR, CRP (2) buttermaker methotrexate user: Code(s): Z79.631 - longterm (current) use of antimetabolite agent Category: Medical Plan: #Long-term Current Use of Methotrexate Discussed with patient the benefits and risks of methotrexate for managing their rheumatic condition Benefits include reduced pain, reduced mortality, maintenance of remission and reduction of flares Risks include oral ulcers, photosensitivity, hepatotoxicity, hematologic toxicity, pneumonitis, flu-like symptoms (especially day after administration), nodulosis, lymphomas ? Limit alcohol and avoid Bactrim ? Monitoring: ?CBC, BMP, LFTs every 3-4 months and hepatitis serologies as needed (3) Long-term current use of Janus kinase inhibitor: Code(s): Z79.622 - buttermaker (current) use of Janus kinase inhibitor Plan: #Long-term Use of CAYDEN inhibitor: Rinvoq Discussed with patient the benefits and risks of CAYDEN inhibitors for the management of the rheumatic condition Benefits include reduce pain, maintenance of remission and reduction of flares Risks include thromboembolic events, skin cancer and nonmelanoma skin cancers, other forms of cancer, cardiovascular alcohol and mortality Advise patient that they are to hold the medication and for up to 1 week after a febrile illness or an open skin wound Plan I spent 30 minutes reviewing the record and labs, taking a history, examining the patient, discussing the treatment plan, ordering diagnostic work up and documenting in the medical record Orders: Orders C Reactive Protein 6 Months - Rheumatoid arthritis with rheumatoid factor of multiple sites without organ or systems involvement Erythrocyte Sedimentation Rate 6 Months . - Rheumatoid arthritis with rheumatoid factor of multiple sites without organ or systems involvement Complete Blood Count Auto Diff 6 Months . - Rheumatoid arthritis with rheumatoid factor of multiple sites without organ or systems involvement Comprehensive Met. Panel 6 Months . - Rheumatoid arthritis with rheumatoid factor of multiple sites without organ or systems involvement Medications: New ibuprofen PRN 600 mg PO Q6H PRN 10 tabs 5RF pain . - Rheumatoid arthritis with rheumatoid factor of multiple sites without organ or systems involvement Refilled alpha lipoic acid 600 mg PO DAILY 30 tabs 5RF . - Rheumatoid arthritis with rheumatoid factor of multiple sites without organ or systems involvement folic acid 2 mg (2 x 1 mg) PO DAILY 180 tabs 1RF methotrexate sodium (PF) 20 mg (0.8 mL) subcut QWEEK 24 mL 1RF 90 days . - Rheumatoid arthritis with rheumatoid factor of multiple sites without organ or systems involvement Rinvoq ER (upadacitinib) 15 mg PO DAILY 30 tabs 5RF NS 5. - Rheumatoid arthritis with rheumatoid factor of multiple sites without organ or systems involvement Coding Level of Care Code Est Pt Level 4 (78211) Complex EM visit Add On G2211 Diagnoses Rheumatoid arthritis involving multiple sites with positive rheumatoid factor M05.79 Rheumatoid arthritis location: multiple sites Rheumatoid factor presence: with rheumatoid factor longterm methotrexate user Z79.631 Long-term current use of Janus kinase inhibitor Z79.622
[2025-02-14 07:42] VITALS: BP 118/70; PULSE 75; O2SAT 98; BMI 31.0
== END 2025-02-14 08:11 | disposition home or self-care (01) ==
LOC: HO.RHE 07:35
PROVIDERS: PCP Family Medicine; Visit Provider Student in an Organized Health Care Education/Training Program
DX: M05.79 Rheumatoid arthritis with rheumatoid factor of multiple sites without organ or systems involvement (principal); Z79.631 Long term (current) use of antimetabolite agent; Z79.622 Long term (current) use of Janus kinase inhibitor
CPT/HCPCS: 99214